=== PATIENT | female | born 1935 | race Caucasian/White ===

== ENCOUNTER 2017-05-28 21:29 | Emergency (ER) | payer MEDICARE ==
[2017-05-28 21:55] VITALS: BP 123/68
--- NOTE | 2017-05-29 00:42 | EDM.PDOC ---
ED HPI GENERAL MEDICAL PROBLEM - General Chief Complaint: Respiratory Problem Stated Complaint: SOB Time Seen by Provider: 05/28/17 22:03 Source of Information: Reports: Patient History Limitations: Reports: No Limitations - History of Present Illness INITIAL COMMENTS - FREE TEXT/NARRATIVE: This lady who has severe COPD comes in complaining of 3 days of shortness of breath cough and sore throat. She has an appointment in a few days with a fine patcher in [place]. Her cough actually seems a little bit better now. She is on home O2 and uses a nebulizer. She has not had a flu shot this year but is certain she's had the Pneumovax. Her her PCP is Rivka horn in [facility]. She lives in an apartment with a friend - Related Data Allergies Allergy/AdvReac Type Severity Reaction Status Date / Time codeine AdvReac Nausea Verified 08/01/15 12:26 Home Meds: Home Meds Lisinopril 5 mg PO DAILY 07/31/15 [History] Omeprazole 20 mg PO DAILY 07/31/15 [History] Past Medical History HEENT History: Reports: Cataract Cardiovascular History: Reports: Arrhythmia, High Cholesterol, Hypertension Respiratory History: Reports: COPD, Pneumonia, Recurrent Gastrointestinal History: Reports: GERD Genitourinary History: Reports: Renal Disease Other Genitourinary History: stage 3 Musculoskeletal History: Reports: Arthritis, Back Pain, Chronic - Infectious Disease History Infectious Disease History: Reports: Measles - Past Surgical History HEENT Surgical History: Reports: Cataract Surgery, Tonsillectomy Social & Family History - Tobacco Use Smoking Status *Q: Never Smoker Years of Tobacco use: 50 - Recreational Drug Use Recreational Drug Use: No ED ROS GENERAL - Review of Systems Review Of Systems: ROS reveals no pertinent complaints other than HPI. ED EXAM, GENERAL - Physical Exam Exam: See Below Exam Limited By: No Limitations General Appearance: Alert, Mild Distress (She has a frequent wet cough and appears to have just mild shortness of breath), Thin Eye Exam: Bilateral Eye: Normal Inspection Nose: Normal Inspection Throat/Mouth: Normal Inspection Head: Atraumatic Respiratory/Chest: Decreased Breath Sounds Cardiovascular: Regular Rate, Rhythm, No Murmur GI/Abdominal: Soft, Non-Tender Extremities: Normal Inspection Neurological: Alert, Oriented Psychiatric: Normal Affect Skin Exam: Warm, Dry Course - Vital Signs Last Recorded V/S: Last Vital Signs Temp 39.5 C H 05/28/17 22:12 Pulse 119 H 05/28/17 22:12 Resp 32 H 05/28/17 22:12 BP 123/68 05/28/17 22:12 Pulse Ox 94 L 05/28/17 22:12 - Orders/Labs/Meds Orders: Active Orders 24 hr Category Date Time Status Chest 2V [CR] Urgent Exams 05/28/17 22:36 Taken CULTURE BLOOD [BC] Urgent Lab 05/28/17 22:50 Received CULTURE BLOOD [BC] Urgent Lab 05/28/17 22:55 Received CULTURE STREP A CONFIRMATION [RM] Stat Lab 05/28/17 23:01 Results STREP SCRN A RAPID W CULT CONF [RM] Stat Lab 05/28/17 23:01 Results Blood Culture x2 Reflex Set [OM.PC] Urgent Oth 05/28/17 22:36 Ordered Labs: Laboratory Tests 05/28/17 05/28/17 05/28/17 Range/Units 22:50 22:50 22:50 WBC 13.4 H (4.5-11.0) K/uL RBC 2.88 L (3.30-5.50) M/uL Hgb 7.5 L D (12.0-15.0) g/dL Hct 25.5 L (36.0-48.0) % MCV 89 (80-98) fL MCH 26 L (27-31) pg MCHC 29 L (32-36) % Plt Count 359 (150-400) K/uL Neut % (Auto) 88 H (36-66) % Lymph % (Auto) 5 L (24-44) % [place] % (Auto) 6 (2-6) % Eos % (Auto) 0 L (2-4) % Baso % (Auto) 0 (0-1) % Sodium 139 L (140-148) mmol/L Potassium 4.2 (3.6-5.2) mmol/L Chloride 105 (100-108) mmol/L Carbon Dioxide 24 (21-32) mmol/L Anion Gap 14.2 H (5.0-14.0) mmol/L BUN 33 H D (7-18) mg/dL Creatinine 1.6 H (0.6-1.0) mg/dL Est Cr Clr Drug Dosing 24.22 mL/min Estimated GFR (MDRD) 31 L (>60) Glucose 114 H (74-106) mg/dL Lactic Acid 1.1 (0.4-2.0) mmol/L Calcium 9.5 (8.5-10.1) mg/dL Total Bilirubin 0.3 (0.2-1.0) mg/dL AST 18 (15-37) U/L ALT 12 (12-78) U/L Alkaline Phosphatase 62 (46-116) U/L Total Protein 7.2 (6.4-8.2) g/dL Albumin 3.1 L (3.4-5.0) g/dL Globulin 4.1 H (2.3-3.5) g/dL Albumin/Globulin Ratio 0.8 L (1.2-2.2) - Radiology Interpretation Free Text/Narrative:: Chest x-ray shows evidence of severe COPD. No definite infiltrates seen - Re-Assessments/Exams Free Text/Narrative Re-Assessment/Exam: 05/29/17 02:40 I suggested that because of her severe lung disease and fever that it would probably be best to put this lady in the hospital and put her on IV antibiotics. She however is certain that she would do well at home so wants to just be put on oral antibiotics. I think that's appropriate. She has promised that she'll return to the ER if she gets worse Departure - Departure Time of Disposition: 00:41 Disposition: Home, Self-Care 01 Condition: Fair Clinical Impression: Pneumonia - Discharge Information Instructions: Community-Acquired Pneumonia, Adult, [id number] Referrals: Rose Marie Gomez PA [Primary Care Provider] - Forms: ED Department Discharge Additional Instructions: Is unclear if you actually have pneumonia or not. Many times he can't see a pneumonia and somebody with really bad COPD. Therefore I'm going to go ahead and treat you with the antibiotic Augmentin and he'll take one tablet twice daily for a week. Continue all of your usual medications. If you feel like you' re getting worse than return to the emergency department or see your doctor. Regardless it would be a good idea to see your doctor within the next 2 or 3 days for a recheck - My Orders Last 24 Hours: My Active Orders 05/28/17 22:36 Chest 2V [CR] Urgent Blood Culture x2 Reflex Set [OM.PC] Urgent 05/28/17 22:50 CULTURE BLOOD [BC] Urgent 05/28/17 22:55 CULTURE BLOOD [BC] Urgent 05/28/17 23:01 CULTURE STREP A CONFIRMATION [RM] Stat STREP SCRN A RAPID W CULT CONF [RM] Stat - Assessment/Plan Last 24 Hours: My Active Orders 05/28/17 22:36 Chest 2V [CR] Urgent Blood Culture x2 Reflex Set [OM.PC] Urgent 05/28/17 22:50 CULTURE BLOOD [BC] Urgent 05/28/17 22:55 CULTURE BLOOD [BC] Urgent 05/28/17 23:01 CULTURE STREP A CONFIRMATION [RM] Stat STREP SCRN A RAPID W CULT CONF [RM] Stat
--- NOTE | 2017-05-29 09:21 | CR ---
Chest 2V HISTORY: pain COMPARISON: 07/31/2015 FINDINGS: No acute infiltrate is identified. Cardiomediastinal silhouette is within normal limits. Atherosclero tic aorta is redemonstrated. Mild apical pleural thickening on the left is stable. Epicardial fat pad is again noted at the right cardiophrenic angle. No vascular redistribution or pleural fluid can be seen. Bony structures and soft tissues are stable. There is mild thoracic scoliosis convex to the rig ht IMPRESSION: Chronic changes as above. No acute chest abnormality is identified. Infiltrates at the left lung base posteriorly have resolved in the interval.
== END 2017-05-29 00:58 | disposition home or self-care (01) ==
LOC: JP.ED 21:29
DX: J18.9 Pneumonia, unspecified organism (principal); Z88.5 Allergy status to narcotic agent; Z79.899 Other long term (current) drug therapy
CPT/HCPCS: 36415; 71020; 71020-26; 80053; 83605; 85025; 87040; 87081; 87430; 87804; 99284; 99285

== ENCOUNTER 2020-02-15 10:09 | Emergency (ER) | payer MEDICARE ==
[2020-02-15 10:35] VITALS: BP 161/62; PULSE 82
--- NOTE | 2020-02-15 10:51 | EDM.PDOC ---
ED HPI GENERAL MEDICAL PROBLEM - General Chief Complaint: Upper Extremity Injury/Pain Stated Complaint: UPPER RIGHT LEG PAIN Time Seen by Provider: 02/15/20 10:40 Source of Information: Reports: Patient History Limitations: Reports: No Limitations - History of Present Illness INITIAL COMMENTS - FREE TEXT/NARRATIVE: 84-year-old female in with right groin pain for the past 48 hours, no known injury. It is especially painful if she is bearing weight or flexes the hip. Pain seems to be localized into the right groin and extends somewhat down into the right medial thigh. She has no swelling or bruising, no rash, no fevers or chills. She is currently on prednisone for a frozen right shoulder. Onset: Sudden (Pain started fairly suddenly 2 days ago) Location: Reports: Lower Extremity, Right Associated Symptoms: Reports: Shortness of Breath (Chronic and stable), Other (Migrating arthritic pains in the shoulder and left hand, being treated for "gout"). Denies: Confusion, Chest Pain, Fever/Chills Right Upper Leg Pain Score (Numeric/FACES): 10 - Related Data Allergies Allergy/AdvReac Type Severity Reaction Status Date / Time codeine AdvReac Nausea Verified 02/15/20 10:31 Home Meds: Home Meds Lisinopril 5 mg PO DAILY 07/31/15 [History] Aspirin [Adult Low Dose Aspirin EC] 81 mg PO DAILY 02/15/20 [History] Telmisartan 40 mg PO DAILY 02/15/20 [History] Tiotropium [Spiriva Handihaler] 18 mcg IH DAILY 02/15/20 [History] predniSONE 40 mg PO DAILY 02/15/20 [History] Past Medical History HEENT History: Reports: Cataract Cardiovascular History: Reports: Arrhythmia, High Cholesterol, Hypertension Respiratory History: Reports: COPD, Pneumonia, Recurrent Gastrointestinal History: Reports: GERD Genitourinary History: Reports: Renal Disease Other Genitourinary History: stage 3 Musculoskeletal History: Reports: Arthritis, Back Pain, Chronic, Gout - Infectious Disease History Infectious Disease History: Reports: Mumps - Past Surgical History HEENT Surgical History: Reports: Cataract Surgery, Tonsillectomy Social & Family History - Tobacco Use Smoking Status *Q: Former Smoker Used Tobacco, but Quit: Yes Month/Year Tobacco Last Used: 15 YEARS - Caffeine Use Caffeine Use: Reports: Soda - Recreational Drug Use Recreational Drug Use: No Review of Systems - Review of Systems Review Of Systems: See Below Constitutional: Denies: Fever Respiratory: Reports: Shortness of Breath (Chronic and stable) Cardiovascular: Denies: Chest Pain GI/Abdominal: Denies: Abdominal Pain, Nausea, Vomiting Genitourinary: Denies: Dysuria, Hematuria Musculoskeletal: Reports: Other (Left index finger is swollen and sore, right shoulder is hurting) Skin: Reports: No Symptoms Neurological: Denies: Headache ED EXAM, GENERAL - Physical Exam Exam: See Below Exam Limited By: No Limitations General Appearance: Alert, No Apparent Distress, Other (Fairly comfortable when lying still) Head: Atraumatic Respiratory/Chest: No Respiratory Distress (Wearing oxygen) GI/Abdominal: Normal Bowel Sounds, Soft, Non-Tender Extremities: Other (Exam is otherwise limited to the lower extremities. She has localized tenderness in the right groin along the inguinal ligament, but no deformity, asymmetry, swelling, bruising, hernia or rash present) Course - Vital Signs Last Recorded V/S: Last Vital Signs Temp 98.3 F 02/15/20 10:31 Pulse 82 02/15/20 10:31 Resp 16 02/15/20 10:31 BP 161/62 H 02/15/20 10:31 Pulse Ox 100 02/15/20 10:31 - Orders/Labs/Meds Meds: Medications Discontinued Medications Generic Name Dose Route Start Last Admin Trade Name Millicent PRN Reason Stop Dose Admin Hydrocodone Bitart/Acetaminophen 1 tab 02/15/20 12:21 02/15/20 12:27 [place] 325-5 Mg PO 02/15/20 12:22 1 tab ONETIME ONE Administration - Re-Assessments/Exams Free Text/Narrative Re-Assessment/Exam: 02/15/20 10:51 A 1 view pelvis x-ray was obtained. 02/15/20 11:08 The 1 view pelvis x-ray showed advanced osteoarthritic changes of the right hip with some erosion of the femoral head. It is difficult to see if there is a compression or pathologic fracture in this area so a CT of the pelvis without contrast was obtained. This will also allow us to look for a hernia in the area. 02/15/20 12:22 Findings: There is no fracture. Degenerative facet arthropathy L5-S1 with grade 1 degenerative spondylolisthesis L5 on S1. Degenerative disc disease L5-S1 with discogenic endplate sclerosis and vacuum disc phenomenon. Vascular calcifications. Incidental Tarlov cysts at the S2 level measuring up to 2.5 centimeters. Sigmoid diverticulosis. Bladder distension. No suspicious soft tissue mass. Ectasia of the distal aorta measuring up to 2.3 centimeters. No sacral fracture. Intact pubic rami. The femoral neck is intact bilaterally. Impression: No fracture. Degenerative changes. Above results were discussed with the patient. She was given 1 5 mg hydrocodone with Tylenol, and an instymed for 10 additional pills. She will recheck next week with her primary provider if not improving satisfactorily. She may need an orthopedic consult as well. Departure - Departure Time of Disposition: 12:28 Disposition: Home, Self-Care 01 Clinical Impression: Right groin pain Osteoarthritis of right hip Qualifiers: Osteoarthritis type: primary Qualified Code(s): M16.11 - Unilateral primary osteoarthritis, right hip - Discharge Information Instructions: Osteoarthritis Referrals: PCP,None [Primary Care Provider] - Forms: ED Department Discharge Care Plan Goals: Take 1 stronger pain pill every 4-6 hours if needed through the weekend, and recheck with your regular doctor next week regarding your progress and improvement. You may need an orthopedic consult regarding your arthritis in your hip. Return to the emergency room at any time if you are worsening despite treatment or develop other concerns. Sepsis Event Note (ED) - Evaluation Sepsis Screening Result: No Definite Risk - Focused Exam Vital Signs: Vital Signs Temp Pulse Resp BP Pulse Ox 02/15/20 10:31 98.3 F 82 16 161/62 H 100
--- NOTE | 2020-02-15 12:16 | CRLCT ---
Indication: RIGHT HIP, GROIN PAIN Technique: Noncontrast CT pelvis, bone algorithm Please note that all CT scans at this facility use dose modulation, iterative reconstruction, and/or weight-based dosing when appropriate to reduce radiation dose to as low as reasonably achievable. Comparison: X-ray February 15, 2020 Findings: There is no fracture. Degenerative facet arthropathy L5-S1 with grade 1 degenerative spondylolisthesis L5 on S1. Degenerative disc disease L5-S1 with discogenic endplate sclerosis and vacuum disc phenomenon. Vascular calcifications. Incidental Tarlov cysts at the S2 level measuring up to 2.5 centimeters. Sigmoid diverticulosis. Bladder distension. No suspicious soft tissue mass. Ectasia of the distal aorta measuring up to 2.3 centimeters. No sacral fracture. Intact pubic rami. The femoral neck is intact bilaterally. Impression: No fracture. Degenerative changes. Please note that all CT scans at this facility use dose modulation, iterative reconstruction, and/or weight-based dosing when appropriate to reduce radiation dose to as low as reasonably achievable. Dictated by Rashawn Whaley MD @ Feb 15 2020 12:09PM Signed by Dr. Rashawn Whaley @ Feb 15 2020 12:15PM
--- NOTE | 2020-02-15 12:19 | CRLCR ---
INDICATION: Right groin pain TECHNIQUE: AP pelvis. COMPARISON: none FINDINGS: No femoral neck fracture. Joint space narrowing and spurring at the right hip. Intact pubic rami. Intact sacrum. Degenerative facet arthropathy L5-S1. No malalignment. IMPRESSION: No fracture. Dictated by Rashawn Whaley MD @ Feb 15 2020 12:16PM Signed by Dr. Rashawn Whaley @ Feb 15 2020 12:16PM
[2020-02-15] MEDS ORDERED: Acetaminophen/HYDROcodone 325-5 MG Tab PO ONE (12:21)
== END 2020-02-15 12:38 | disposition home or self-care (01) ==
LOC: JP.ED 10:09
DX: M16.11 Unilateral primary osteoarthritis, right hip (principal); R10.31 Right lower quadrant pain; E78.00 Pure hypercholesterolemia, unspecified; I10 Essential (primary) hypertension; J44.9 Chronic obstructive pulmonary disease, unspecified; Z87.891 Personal history of nicotine dependence; Z88.5 Allergy status to narcotic agent; Z79.899 Other long term (current) drug therapy; Z79.82 Long term (current) use of aspirin
CPT/HCPCS: 72170; 72192; 99284; A9270; 99283

== ENCOUNTER 2020-06-09 13:17 | Emergency (ER) | payer MEDICARE ==
[2020-06-09 13:52] VITALS: BP 98/64; PULSE 83
--- NOTE | 2020-06-09 15:03 | EDM.PDOC ---
ED HPI GENERAL MEDICAL PROBLEM - General Chief Complaint: Respiratory Problem Stated Complaint: MEDICAL Time Seen by Provider: 06/09/20 14:50 Source of Information: Reports: Patient, RN Notes Reviewed History Limitations: Reports: No Limitations - History of Present Illness INITIAL COMMENTS - FREE TEXT/NARRATIVE: 85-year-old female complains to me that she thinks she has pneumonia. Seen epicortical pneumonia with noted on some got antibiotic. Says it does not help and she not getting better. Denies any fever or chills or diaphoresis. Cough is generally nonproductive. She is cared for at a facility in which she lives. Generally active. Prednisone neuritis. Mainly concerned about pneumonia as she does cough in my presence. [place] is a possibility Onset: Gradual Duration: Day(s): Location: Reports: Chest Severity: Moderate Improves with: Reports: None Worsens with: Reports: None Associated Symptoms: Reports: Cough, Loss of Appetite, Shortness of Breath Left Lower Back Pain Score (Numeric/FACES): 5 - Related Data Allergies Allergy/AdvReac Type Severity Reaction Status Date / Time codeine AdvReac Nausea Verified 02/15/20 10:31 Home Meds: Home Meds Lisinopril 5 mg PO DAILY 07/31/15 [History] Aspirin [Adult Low Dose Aspirin EC] 81 mg PO DAILY 02/15/20 [History] Telmisartan 40 mg PO DAILY 02/15/20 [History] Tiotropium [Spiriva Handihaler] 18 mcg IH DAILY 02/15/20 [History] Past Medical History HEENT History: Reports: Cataract Cardiovascular History: Reports: Arrhythmia, High Cholesterol, Hypertension Respiratory History: Reports: COPD, Pneumonia, Recurrent Gastrointestinal History: Reports: GERD Genitourinary History: Reports: Renal Disease Other Genitourinary History: stage 3 [employer] History: Reports: Musculoskeletal History: Reports: Arthritis, Back Pain, Chronic, Gout - Infectious Disease History Infectious Disease History: Reports: Mumps - Past Surgical History HEENT Surgical History: Reports: Cataract Surgery, Tonsillectomy Social & Family History - Tobacco Use Tobacco Use Status *Q: Former Tobacco User Used Tobacco, but Quit: Yes Month/Year Tobacco Last Used: 14 years - Caffeine Use Caffeine Use: Reports: None - Recreational Drug Use Recreational Drug Use: Yes ED ROS GENERAL - Review of Systems Review Of Systems: See Below Constitutional: Reports: Weakness, Fatigue, Decreased Appetite HEENT: Reports: No Symptoms Respiratory: Reports: Shortness of Breath, Cough Cardiovascular: Reports: No Symptoms, Dyspnea on Exertion Endocrine: Reports: Fatigue GI/Abdominal: Reports: No Symptoms : Reports: No Symptoms Musculoskeletal: Reports: Joint Pain Skin: Reports: No Symptoms Neurological: Reports: No Symptoms Psychiatric: Reports: No Symptoms ED EXAM, GENERAL - Physical Exam Exam: See Below Free Text/Narrative:: Patient is uncooperative elderly appearing thin frail female lying on her side but not greatly distressed. Head exam does show no asymmetry or facial drooping. Neck is supple without JVD Chest is got some altered Jasmin but no retractions Regular rate and rhythm noted without obvious murmur Abdomen soft active bowel sounds nontender Skin extremities appear normal with normal range of motion Exam Limited By: No Limitations General Appearance: Alert, WD/WN, Mild Distress Ears: Normal External Exam Nose: Normal Inspection, Normal Mucosa Throat/Mouth: Normal Inspection Head: Atraumatic, Normocephalic Neck: Normal Inspection, Supple Respiratory/Chest: Crackles, Rhonchi Cardiovascular: Regular Rate, Rhythm, No Murmur GI/Abdominal: Normal Bowel Sounds, Soft, Non-Tender, No Distention Back Exam: Normal Inspection, Full Range of Motion Extremities: Normal Inspection, Normal Range of Motion, No Pedal Edema Neurological: Alert, Oriented, Normal Cognition, No Motor/Sensory Deficits Psychiatric: Normal Affect Skin Exam: Warm, Dry Lymphatic: No Adenopathy Course - Vital Signs Text/Narrative:: 85-year-old female presents because she think she has pneumonia and generalized weakness. She has some shortness of breath. She was started on antibiotics apparently but is not any better. She denies any history of blood loss anywhere that she knows of or black stools. Denies chest pain at the moment. Hemoglobin is 6.9. BUN is 99. Potassium 5.8 White count is 1500 Chest x-ray suggest some bilateral infiltrates possible pneumonia I discussed her care with her daughter Karen who urges that her mother accept treatment and stay in the hospital. I have discussed with the patient who seems to understand the gravity of the situation. I have advised her that she needs blood which she is willing to take but she will not stay in the hospital to receive it. I advised her also that she is probably dehydrated and that she has a very low w bob count. She also understands that she may be Covid positive which taken together with her general debilitated situation does not have a good forecast. She refuses any Covid testing She does not want any interventions if her heart stops she indicates. She absolutely wants to go home and her neighbor is willing to take her if that is what the patient insists that she wants to do. She appears to have the capacity to make that decision on her own and is not gravely disabled enough to preclude her from that decision She wants to know she can come back at a later time if she does not feel well and I assured her that she is welcome to come back at any time Last Recorded V/S: Last Vital Signs Temp 35.6 C L 06/09/20 13:51 Pulse 83 06/09/20 13:51 Resp 16 06/09/20 13:51 BP 98/64 06/09/20 13:51 Pulse Ox 98 06/09/20 13:51 - Orders/Labs/Meds Orders: Active Orders 24 hr Category Date Time Status EKG Documentation Completion [RC] ASDIRECTED Care 06/09/20 15:07 Active CORONAVIRUS COVID-19, YAIR Stat Lab 06/09/20 15:06 Ordered IRON/TIBC [CHEM] Stat Lab 06/09/20 15:57 Ordered TYPE AND SCREEN [BBK] Stat Lab 06/09/20 15:57 Ordered UA W/MICROSCOPIC [URIN] Stat Lab 06/09/20 15:06 Ordered EKG 12 Lead [EK] Stat Ther 06/09/20 15:06 Ordered Labs: Laboratory Tests 06/09/20 06/09/20 06/09/20 Range/Units 15:06 15:37 15:37 WBC 1.5 L (4.5-11.0) K/uL RBC 2.90 L (3.30-5.50) M/uL Hgb 6.9 L* (12.0-15.0) g/dL Hct 25.8 L (36.0-48.0) % MCV 89 (80-98) fL MCH 24 L (27-31) pg MCHC 27 L (32-36) % Plt Count 69 L (150-400) K/uL D-Dimer, Quantitative 6652.90 H (0.0-500.0) ng/mL ABG Hemoglobin 7.2 L (12.0-16.0) g/dL ABG Oxyhemoglobin 27.8 % ABG Carboxyhemoglobin 3.1 H (0.0-1.6) % ABG Methemoglobin 1.1 % VBG pH 7.332 L (7.350-7.450) VBG pCO2 43.8 mm/Hg VBG pO2 23.8 mm/Hg VBG HCO3 22.6 mmol/L VBG Total CO2 22.3 mmol/L VBG O2 Saturation 29.0 VBG O2 Content 2.8 %vol VBG Base Excess -2.5 mm/L O2 Delivery Device Room air Sodium (140-148) mmol/L Potassium (3.6-5.2) mmol/L Chloride (100-108) mmol/L Carbon Dioxide (21-32) mmol/L Anion Gap (5.0-14.0) mmol/L BUN (7-18) mg/dL Creatinine (0.6-1.0) mg/dL Est Cr Clr Drug Dosing mL/min Estimated GFR (MDRD) (>60) Glucose (74-106) mg/dL Calcium (8.5-10.1) mg/dL Total Bilirubin (0.2-1.0) mg/dL AST (15-37) U/L ALT (12-78) U/L Alkaline Phosphatase (46-116) U/L Troponin I (0.000-0.056) ng/mL C-Reactive Protein (0.0-0.3) mg/dL Total Protein (6.4-8.2) g/dL Albumin (3.4-5.0) g/dL Globulin (2.3-3.5) g/dL Albumin/Globulin Ratio (1.2-2.2) 06/09/20 Range/Units 15:37 WBC (4.5-11.0) K/uL RBC (3.30-5.50) M/uL Hgb (12.0-15.0) g/dL Hct (36.0-48.0) % MCV (80-98) fL MCH (27-31) pg MCHC (32-36) % Plt Count (150-400) K/uL D-Dimer, Quantitative (0.0-500.0) ng/mL ABG Hemoglobin (12.0-16.0) g/dL ABG Oxyhemoglobin % ABG Carboxyhemoglobin (0.0-1.6) % ABG Methemoglobin % VBG pH (7.350-7.450) VBG pCO2 mm/Hg VBG pO2 mm/Hg VBG HCO3 mmol/L VBG Total CO2 mmol/L VBG O2 Saturation VBG O2 Content %vol VBG Base Excess mm/L O2 Delivery Device Sodium 146 (140-148) mmol/L Potassium 5.8 H (3.6-5.2) mmol/L Chloride 111 H (100-108) mmol/L Carbon Dioxide 24 (21-32) mmol/L Anion Gap 16.8 H (5.0-14.0) mmol/L BUN 99 H* D (7-18) mg/dL Creatinine 2.2 H (0.6-1.0) mg/dL Est Cr Clr Drug Dosing 14.15 mL/min Estimated GFR (MDRD) 21 L (>60) Glucose 83 (74-106) mg/dL Calcium 9.8 (8.5-10.1) mg/dL Total Bilirubin 0.3 (0.2-1.0) mg/dL AST 16 (15-37) U/L ALT 12 (12-78) U/L Alkaline Phosphatase 45 L (46-116) U/L Troponin I < 0.017 (0.000-0.056) ng/mL C-Reactive Protein 11.21 H (0.0-0.3) mg/dL Total Protein 6.8 (6.4-8.2) g/dL Albumin 2.6 L (3.4-5.0) g/dL Globulin 4.2 H (2.3-3.5) g/dL Albumin/Globulin Ratio 0.6 L (1.2-2.2) Departure - Departure Time of Disposition: 16:22 Disposition: Home, Self-Care 01 Condition: Poor, Serious Clinical Impression: Pneumonia, Leukopenia - Discharge Information Referrals: PCP,None [Primary Care Provider] - Forms: ED Department Discharge Additional Instructions: Return to the emergency department anytime when you feel it is appropriate I suggest that you call your daughter and discuss with her Sepsis Event Note (ED) - Evaluation Sepsis Screening Result: No Definite Risk - Focused Exam Vital Signs: Vital Signs Temp Pulse Resp BP Pulse Ox 06/09/20 13:51 35.6 C L 83 16 98/64 98 - My Orders Last 24 Hours: My Active Orders 06/09/20 15:06 CORONAVIRUS COVID-19, YARI Stat UA W/MICROSCOPIC [URIN] Stat EKG 12 Lead [EK] Stat 06/09/20 15:07 EKG Documentation Completion [RC] ASDIRECTED 06/09/20 15:57 IRON/TIBC [CHEM] Stat TYPE AND SCREEN [BBK] Stat - Assessment/Plan Last 24 Hours: My Active Orders 06/09/20 15:06 CORONAVIRUS COVID-19, YAIR Stat UA W/MICROSCOPIC [URIN] Stat EKG 12 Lead [EK] Stat 06/09/20 15:07 EKG Documentation Completion [RC] ASDIRECTED 06/09/20 15:57 IRON/TIBC [CHEM] Stat TYPE AND SCREEN [BBK] Stat
--- NOTE | 2020-06-09 16:17 | CR ---
CHEST: Portable 06/09/2020 3:56 PM CLINICAL HISTORY:Pain COMPARISON:None FINDINGS: Lungs are moderately emphysematous. Heart size and pulmonary vascularity are normal. There are some scattered vague nodularity. This may be pleural parenchymal scarring but short-term follow-up is recommended. Impression: Advanced changes of COPD There are some vague nodular foci bilaterally. Noncontrast CT chest should BE considered when patient's condition allows to exclude metastatic disease.
== END 2020-06-09 16:33 | disposition left against medical advice (07) ==
LOC: JP.ED 13:17
DX: J18.9 Pneumonia, unspecified organism (principal); D72.819 Decreased white blood cell count, unspecified; I10 Essential (primary) hypertension; M19.90 Unspecified osteoarthritis, unspecified site; Z87.891 Personal history of nicotine dependence; Z88.5 Allergy status to narcotic agent; Z79.82 Long term (current) use of aspirin; J44.9 Chronic obstructive pulmonary disease, unspecified
CPT/HCPCS: 36415; 71045; 71045-26; 80053; 82803; 83550; 84484; 85027; 85379; 86140; 86850; 86900; 86901; 93005; 93010; 99283; 99285-25

== ENCOUNTER 2020-07-04 19:02 | Inpatient (IN) | payer MEDICARE ==
[2020-07-04] MEDS ORDERED: Adenosine 6 MG/2 ML SDV IVPUSH ONE ×2 (19:06)
[2020-07-04] MEDS ORDERED: Sodium Chloride 0.9% 10 ML Syringe FLUSH PRN (19:25)
[2020-07-04] MEDS ORDERED: Metoprolol Tartrate 5 MG/5 ML SDV IVPUSH ONE (19:25)
--- NOTE | 2020-07-04 19:29 | EDM.PDOC ---
ED HPI GENERAL MEDICAL PROBLEM - General Chief Complaint: Chest Pain Stated Complaint: CHEST PAINS Time Seen by Provider: 07/04/20 20:58 Source of Information: Reports: Patient, RN Notes Reviewed History Limitations: Reports: No Limitations - History of Present Illness INITIAL COMMENTS - FREE TEXT/NARRATIVE: 85-year-old female presents emergency department with a complaint of chest pressure, and palpitations, she states she had an event earlier today friends brought her into the ED for evaluation and while she is in the ED she become tachycardic with a heart rate in the 190s, was able to communicate this whole time did not feel lightheaded states she could feel the palpitations did have some chest discomfort and right arm pain with this no nausea vomiting - Related Data Allergies Allergy/AdvReac Type Severity Reaction Status Date / Time codeine AdvReac Nausea Verified 07/04/20 19:25 Home Meds: Home Meds Lisinopril 5 mg PO DAILY 07/31/15 [History] Aspirin [Adult Low Dose Aspirin EC] 81 mg PO DAILY 02/15/20 [History] Telmisartan 40 mg PO DAILY 02/15/20 [History] Tiotropium [Spiriva Handihaler] 18 mcg IH DAILY 02/15/20 [History] Albuterol Sulfate 1 dose INH ASDIRECTED 07/04/20 [History] Past Medical History HEENT History: Reports: Cataract Cardiovascular History: Reports: Arrhythmia (SVT), High Cholesterol, Hypertension Respiratory History: Reports: COPD, Pneumonia, Recurrent Gastrointestinal History: Reports: GERD Genitourinary History: Reports: Renal Disease Other Genitourinary History: stage 3 [employer] History: Reports: Musculoskeletal History: Reports: Arthritis, Back Pain, Chronic, Gout - Infectious Disease History Infectious Disease History: Reports: Mumps - Past Surgical History HEENT Surgical History: Reports: Cataract Surgery, Tonsillectomy Social & Family History - Caffeine Use Caffeine Use: Reports: None ED ROS GENERAL - Review of Systems Review Of Systems: See Below Constitutional: Reports: No Symptoms HEENT: Reports: No Symptoms Respiratory: Reports: No Symptoms Cardiovascular: Reports: Chest Pain, Palpitations GI/Abdominal: Reports: No Symptoms ED EXAM, GENERAL - Physical Exam Exam: See Below Exam Limited By: No Limitations General Appearance: Alert, Mild Distress Respiratory/Chest: No Respiratory Distress, Lungs Clear, Normal Breath Sounds, No Accessory Muscle Use, Chest Non-Tender Cardiovascular: Tachycardia ED CARDIOLOGY PROCEDURES - Cardioversion Time of Cardioversion: 19:28 Indication: SVT Patient Counseled: Yes Informed Consent Obtained: No Preparation: IV Access, Airway Management Equipment, Supplemental Oxygen Patient Condition Post Cardioversion: Improved Post Cardioversion EKG Reviewed: Yes (Chemical cardioversion with adenosine) Course - Vital Signs Last Recorded V/S: Last Vital Signs Temp 95.5 F L 07/04/20 19:05 Pulse 92 07/04/20 20:30 Resp 18 07/04/20 20:30 BP 98/60 07/04/20 20:30 Pulse Ox 99 07/04/20 20:30 - Orders/Labs/Meds Orders: Active Orders 24 hr Category Date Time Status Cardiac Monitoring [RC] .As Directed Care 07/04/20 19:26 Active EKG Documentation Completion [RC] ASDIRECTED Care 07/04/20 19:26 Active Peripheral IV Care [RC] . DIRECTED Care 07/04/20 19:26 Active Chest 1V Frontal [CR] Urgent Exams 07/04/20 20:42 Ordered Chest Abdomen Pelvis wo Cont [CT] Stat Exams 07/04/20 20:50 Ordered FERRITIN [CHEM] Stat Lab 07/04/20 20:51 Ordered IRON/TIBC [CHEM] Stat Lab 07/04/20 20:51 Ordered RED BLOOD CELLS LP [BBK] Stat Lab 07/04/20 20:51 Ordered TYPE AND SCREEN [BBK] Stat Lab 07/04/20 20:51 Ordered UA W/MICROSCOPIC [URIN] Urgent Lab 07/04/20 20:42 Ordered Sodium Chloride 0.9% [Normal Saline] 1,000 ml Med 07/04/20 19:30 Active IV ASDIRECTED Sodium Chloride 0.9% [Saline Flush] Med 07/04/20 19:25 Active 10 ml FLUSH ASDIRECTED PRN Peripheral IV Insertion Adult [OM.PC] Stat Oth 07/04/20 19:25 Ordered Transfuse Red Blood Cells [COMM] Stat Oth 07/04/20 20:51 Ordered EKG 12 Lead [EK] Stat Ther 07/04/20 19:26 Ordered Medication Orders Sodium Chloride (Normal Saline) 1,000 mls @ 125 mls/hr IV ASDIRECTED YEN Last Admin: 07/04/20 20:15 Dose: 125 mls/hr Documented by: [email or web address] Sodium Chloride (Saline Flush) 10 ml FLUSH ASDIRECTED PRN PRN Reason: Keep Vein Open Labs: Laboratory Tests 07/04/20 07/04/20 07/04/20 Range/Units 19:15 19:15 19:15 WBC 18.2 H (4.5-11.0) K/uL RBC 2.67 L (3.30-5.50) M/uL Hgb 6.8 L* (12.0-15.0) g/dL Hct 25.3 L (36.0-48.0) % MCV 95 (80-98) fL MCH 26 L (27-31) pg MCHC 27 L (32-36) % Plt Count 684 H (150-400) K/uL Neut % (Auto) 80 H (36-66) % Lymph % (Auto) 11 L (24-44) % [place] % (Auto) 7 H (2-6) % Eos % (Auto) 1 L (2-4) % Baso % (Auto) 1 (0-1) % Sodium 137 L (140-148) mmol/L Potassium 4.6 (3.6-5.2) mmol/L Chloride 101 (100-108) mmol/L Carbon Dioxide 23 (21-32) mmol/L Anion Gap 17.6 H (5.0-14.0) mmol/L BUN 47 H D (7-18) mg/dL Creatinine 2.3 H (0.6-1.0) mg/dL Est Cr Clr Drug Dosing 14.07 mL/min Estimated GFR (MDRD) 20 L (>60) Glucose 114 H (74-106) mg/dL Lactic Acid 2.6 H (0.4-2.0) mmol/L Calcium 10.2 H (8.5-10.1) mg/dL Total Bilirubin 0.2 (0.2-1.0) mg/dL AST 14 L (15-37) U/L ALT 13 (12-78) U/L Alkaline Phosphatase 59 (46-116) U/L Troponin I < 0.017 (0.000-0.056) ng/mL Total Protein 7.2 (6.4-8.2) g/dL Albumin 2.3 L (3.4-5.0) g/dL Globulin 4.9 H (2.3-3.5) g/dL Albumin/Globulin Ratio 0.5 L (1.2-2.2) Meds: Medications Generic Name Dose Route Start Last Admin Trade Name Freq PRN Reason Stop Dose Admin Sodium Chloride 1,000 mls @ 125 mls/hr 07/04/20 19:30 07/04/20 20:15 Normal Saline IV 125 mls/hr ASDIRECTED YEN Administration Sodium Chloride 10 ml 07/04/20 19:25 Saline Flush FLUSH ASDIRECTED PRN Keep Vein Open Discontinued Medications Generic Name Dose Route Start Last Admin Trade Name Freq PRN Reason Stop Dose Admin Adenosine 6 mg 07/04/20 19:06 07/04/20 19:18 Adenocard IVPUSH 07/04/20 19:07 6 mg NOW ONE Administration Adenosine 12 mg 07/04/20 19:06 07/04/20 20:03 Adenocard IVPUSH 07/04/20 19:07 Not Given NOW ONE Metoprolol Tartrate 2.5 mg 07/04/20 19:25 07/04/20 20:01 Lopressor IVPUSH 07/04/20 19:26 2.5 mg ONETIME ONE Administration Departure - Departure Time of Disposition: 20:58 Disposition: Admitted As Inpatient 68 Condition: Poor Clinical Impression: Paroxysmal supraventricular tachycardia Anemia Qualifiers: Anemia type: unspecified type Qualified Code(s): D64.9 - Anemia, unspecified Referrals: PCP,None [Primary Care Provider] - Forms: ED Department Discharge Sepsis Event Note (ED) - Focused Exam Vital Signs: Vital Signs Temp Pulse Pulse Resp BP BP Pulse Ox 07/04/20 20:30 92 18 98/60 99 07/04/20 20:20 91 97/53 L 07/04/20 20:01 91 113/58 L 07/04/20 19:50 89 20 110/60 100 07/04/20 19:40 86 106/62 07/04/20 19:30 90 102/61 07/04/20 19:05 95.5 F L 121 H 18 100/66 98 - My Orders Last 24 Hours: My Active Orders 07/04/20 19:25 Sodium Chloride 0.9% [Saline Flush] 10 ml FLUSH ASDIRECTED PRN Peripheral IV Insertion Adult [OM.PC] Stat 07/04/20 19:26 Cardiac Monitoring [RC] .As Directed EKG Documentation Completion [RC] ASDIRECTED Peripheral IV Care [RC] . DIRECTED EKG 12 Lead [EK] Stat 07/04/20 19:30 Sodium Chloride 0.9% [Normal Saline] 1,000 ml IV ASDIRECTED 07/04/20 20:42 Chest 1V Frontal [CR] Urgent UA W/MICROSCOPIC [URIN] Urgent 07/04/20 20:50 Chest Abdomen Pelvis wo Cont [CT] Stat 07/04/20 20:51 FERRITIN [CHEM] Stat IRON/TIBC [CHEM] Stat RED BLOOD CELLS LP [BBK] Stat TYPE AND SCREEN [BBK] Stat Transfuse Red Blood Cells [COMM] Stat - Assessment/Plan Last 24 Hours: My Active Orders 07/04/20 19:25 Sodium Chloride 0.9% [Saline Flush] 10 ml FLUSH ASDIRECTED PRN Peripheral IV Insertion Adult [OM.PC] Stat 07/04/20 19:26 Cardiac Monitoring [RC] .As Directed EKG Documentation Completion [RC] ASDIRECTED Peripheral IV Care [RC] . DIRECTED EKG 12 Lead [EK] Stat 07/04/20 19:30 Sodium Chloride 0.9% [Normal Saline] 1,000 ml IV ASDIRECTED 07/04/20 20:42 Chest 1V Frontal [CR] Urgent UA W/MICROSCOPIC [URIN] Urgent 07/04/20 20:50 Chest Abdomen Pelvis wo Cont [CT] Stat 07/04/20 20:51 FERRITIN [CHEM] Stat IRON/TIBC [CHEM] Stat RED BLOOD CELLS LP [BBK] Stat TYPE AND SCREEN [BBK] Stat Transfuse Red Blood Cells [COMM] Stat Plan: Assessment Acuity = acute Site and laterality = SVT complicated the patient with known history of severe end-stage COPD, hypertension and dyslipidemia Etiology = unknown Manifestations = none Location of injury = Home Lab values = WBC elevated 18.2 consistent leukocytosis hemoglobin low at 6.8 consistent with normochromic anemia platelets elevated 684 consistent with thrombocytosis creatinine elevated 2.3 consistent with chronic renal failure stage G4 lactic acid elevated 2.6 consistent lactic acidosis troponin is negative albumin low at 2.3 consistent with hypoalbuminemia, chest x-ray CT scan abdomen pelvis without contrast pending Plan Call discussed case hospitalist on-call at [phone] currently agreed to come and evaluate patient emergency department for admission This note was dictated using [employer] voice recognition software please call with any questions on syntax or grammar.
[2020-07-04] MEDS ORDERED: Sodium Chloride 0.9% 1,000 ML IV SCH (19:30)
--- NOTE | 2020-07-04 22:20 | CRLCT ---
INDICATION: Lung nodules COMPARISON: None available TECHNIQUE: CT examination of the chest, abdomen, and pelvis was performed without contrast enhancement using 3 mm thick axial sections from above the apices of the lungs through the symphysis pubis. Oral contrast was not administered. Please note that all CT scans at this facility use dose modulation, iterative reconstruction, and/or weight-based dosing when appropriate to reduce radiation dose to as low as reasonably achievable. FINDINGS: : There is a rounded, spiculated mass in the posterior right apex measuring 2.3 x 3.8 x 1.4 centimeters. It contains central calcifications. There is a rounded, spiculated mass in the posterior left apex measuring 3.8 x 2.5 x 0.8 centimeters. This does not have any calcifications. Both of these masses are in continuity with the apical pleura and could be areas of nodular pleural scarring. Malignancy cannot be excluded. Recommend correlation with PET/CT scanning if no previous CTs of the chest are available. There is moderate left and mild right apical pleural scarring adjacent to these nodular densities, along with mild centrilobular bullous emphysema, slightly more prominent on the left than the right. There is mild bronchiectasis throughout both lungs with mild thickening of the bronchial mon[place] in both lower lobes consistent with bronchitis. This is associated with mild tree-in-bud inflammatory changes in the lower lobes at the lung bases bilaterally, consistent with inflammatory disease. Nodular scarring is seen in the pleural and subpleural regions of both anterior right middle and inferior lingular regions consistent with scarring from previous inflammatory disease. There is a moderate-sized hiatal hernia. There is no sign of mediastinal or hilar mass or adenopathy. Sensitivity is limited by the absence of contrast enhancement. There is mild left main LAD, LCX, and RCA coronary calcification. The heart is otherwise normal in appearance for the patient`s age, as are the aorta and other ascending great vessels. There is no sign of supraclavicular or axillary mass or adenopathy. In the abdomen, the liver has a 6 millimeter low-density region in the anterior dome of the anterior segment of the right lobe, segment 8. This is most likely a small cyst. The rest of the liver is normal in appearance. The spleen, pancreas, and adrenals are normal in appearance. Multiple cysts are seen arising from both kidneys. The largest cyst arises from the lower pole of the right kidney, measuring 4.1 centimeters in diameter. The gallbladder is normal in appearance. The abdominal aorta has mild dilatation of the infrarenal region with tortuosity, measuring up to 2.7 centimeters in transverse diameter, not reaching the 3.0 centimeter threshold to require annual follow-up. There is no sign of retroperitoneal mass or adenopathy. The intrathoracic stomach and loops of small bowel in the abdomen are normal in appearance. There is moderate diverticulosis of the colon of the splenic flexure and prominent diverticulosis of the descending colon. The right colon is unremarkable. In the pelvis, the appendix is normal in appearance with no sign of inflammatory process. There is prominent sigmoid diverticulosis without evidence of diverticulitis. The loops of small bowel and colon in the pelvis are otherwise normal in appearance. The uterus and adnexal regions are normal in appearance. The urinary bladder is mildly distended and is otherwise normal in appearance. There is no sign of pelvic or inguinal mass or adenopathy. There is no sign of free air or free fluid in the abdomen or pelvis. There is moderate scoliosis of the upper lumbar spine convex towards the left with prominent T12-L1 disc degenerative disease and mild rotatory scoliosis of the T12 vertebral body towards the right. There is prominent disc degenerative disease throughout the upper lumbar spine related to the scoliosis. 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 The right pars is intact. 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 There is mild primary osteoarthritis of the left hip with mild left hip primary osteoarthritis. There is no sign of any lytic or blastic lesions in the bone, with no evidence of metastatic disease. IMPRESSION: CT of the chest shows right greater than left apical pleural masses, malignancy versus scarring. Recommend correlation with PET/CT scanning no previous CTs of the chest are available. Bronchiectasis throughout both lungs. Bronchial wall thickening in the lower lobes along with mild peripheral tree-in-bud infiltrates, consistent with bronchitis. Slightly more prominent areas of scarring in the anterior subpleural right middle lobe and lingula. Moderate hiatal hernia. CT of the abdomen shows multiple renal cysts. Mild focal dilatation of the infrarenal abdominal aorta measuring up to a centimeters in diameter, not reaching the 3.0 centimeter threshold to suggest routine annual screening. Diverticulosis of the left colon. CT of the pelvis shows prominent diverticulosis of the sigmoid colon with no sign of diverticulitis. Mild distention of the otherwise normal appearing urinary bladder. No evidence of metastatic disease to the chest, abdomen, or pelvis. Please note that all CT scans at this facility use dose modulation, iterative reconstruction, and/or weight-based dosing when appropriate to reduce radiation dose to as low as reasonably achievable. Dictated by Harris Mckeon MD @ Jul 04 2020 10:01PM Signed by Dr. Harris Mckeon @ Jul 04 2020 10:19PM
--- NOTE | 2020-07-04 22:52 | PCM.HP.2 ---
H&P History of Present Illness - General Date of Service: 07/04/20 Admit Problem/Dx: Admission Diagnosis/Problem Admission Diagnosis/Problem Anemia due to blood loss Source of Information: Patient, Provider History Limitations: Reports: No Limitations - History of Present Illness Initial Comments - Free Text/Narative: CC: there's something running across my chest HPI: Gisselle presents to the emergency room today with the sensation that something is running across to her chest. She describes what sound like palpitations followed by a warmth that spreads from her chest up into her neck and then her head. She becomes dizzy and lightheaded but has not passed out. She had a couple of these episodes today and has had several of them over the last 2 to 3 months and she thinks maybe she has been having them even for 2 or 3 years. They seem to be more intense in recent days. She does not describe any chest pain or pressure but does feel short of breath with the episodes. They last for just a short while before resolving on their own. She had an episode while she was in the emergency room and her heart rate was 190 with a rhythm that appeared to be SVT. She reports significant fatigue over the last month or so but has not really felt well for the last 6 months. She has not noticed any black or tarry stools and has not had any blood in her stool. No hematemesis. Appetite is good with the exception of about 3 weeks ago when she was sick with what sounds like a Covid infection though she was never tested. She has not had recent fevers. No significant cough. Oxygenation is stable on her usual 2 L. She has noticed lower extremity swelling over the last couple of weeks and this is limited to her ankles. Work-up in the emergency room revealed significant tachycardia with SVT. This slowed to a sinus tachycardia after adenosine and then has slowed further to a normal sinus rhythm. Laboratory work-up revealed leukocytosis and thrombocytosis as well as anemia with hemoglobin of less than 7. Her creatinine is 2.3 which is where it has been the last couple times it has been checked here at the hospital. She had a CT scan of the chest, abdomen and pelvis which showed some cystic kidney disease and some bronchiectasis but no impressive acute findings. She is going to be admitted for management of the anemia which is suspected to be due to acute but occult blood loss as well as the SVT and work-up of her kidney disease which is worsening with review of her [facility] records. - Related Data Allergies/Adverse Reactions: Allergies Allergy/AdvReac Type Severity Reaction Status Date / Time codeine AdvReac Nausea Verified 07/04/20 19:25 Home Medications: Home Meds Aspirin [Adult Low Dose Aspirin EC] 81 mg PO DAILY 02/15/20 [History] Telmisartan 40 mg PO DAILY 02/15/20 [History] Tiotropium [Spiriva Handihaler] 18 mcg IH DAILY 02/15/20 [History] Albuterol Sulfate 1 dose INH ASDIRECTED 07/04/20 [History] Albuterol [Proventil Neb Soln] 2.5 mg NEB QID 07/04/20 [History] Past Medical History HEENT History: Reports: Cataract Cardiovascular History: Reports: Arrhythmia, High Cholesterol, Hypertension Respiratory History: Reports: COPD, Pneumonia, Recurrent Gastrointestinal History: Reports: GERD Genitourinary History: Reports: Renal Disease Other Genitourinary History: stage 3 ONCOLOGY ADMIN History: Reports: Musculoskeletal History: Reports: Arthritis, Back Pain, Chronic, Gout - Infectious Disease History Infectious Disease History: Reports: Mumps - Past Surgical History HEENT Surgical History: Reports: Cataract Surgery, Tonsillectomy Social & Family History - Family History Cardiac: Reports: CAD - Tobacco Use Tobacco Use Status *Q: Never Tobacco User - Caffeine Use Caffeine Use: Reports: None H&P Review of Systems - Review of Systems: Review Of Systems: See Below Free Text/Narrative: A complete 12 point review of systems was obtained. Pertinent positives and negatives are noted in the history of present illness. All other systems were reviewed and were negative except as noted. Exam - Exam Exam: See Below - Vital Signs Vital Signs: Last Vital Signs Temp 35.3 C L 07/04/20 19:05 Pulse 85 07/04/20 22:35 Resp 20 07/04/20 22:35 BP 105/60 07/04/20 22:35 Pulse Ox 100 07/04/20 22:35 Weight: 48.081 kg - Exam Quality Assessment: Supplemental Oxygen General: Alert, Oriented, Cooperative. No: Mild Distress HEENT: Conjunctiva Clear, Mucosa Moist & [place]. No: Scleral Icterus Neck: Supple, Trachea Midline. No: JVD Lungs: Clear to Auscultation, Normal Respiratory Effort Cardiovascular: Regular Rate, Regular Rhythm GI/Abdominal Exam: Soft, No Distention Extremities: Pedal Edema (pitting edema both ankles ). No: Increased Warmth Peripheral Pulses: 0: Dorsalis Pedis (L), Dorsalis Pedis (R) Skin: Warm, Dry Neuro Extensive - Mental Status: Alert, Oriented x3, Nl Response to Commands Neuro Extensive - Motor, Sensory, Reflexes: No: Dysarthria, Abnormal Motor, Tremor Psychiatric: Alert, Normal Affect - Patient Data Lab Results Last 24 hrs: Laboratory Results - last 24 hr 07/04/20 07/04/20 07/04/20 Range/Units 19:15 19:15 19:15 WBC 18.2 H (4.5-11.0) K/uL RBC 2.67 L (3.30-5.50) M/uL Hgb 6.8 L* (12.0-15.0) g/dL Hct 25.3 L (36.0-48.0) % MCV 95 (80-98) fL MCH 26 L (27-31) pg MCHC 27 L (32-36) % Plt Count 684 H (150-400) K/uL Neut % (Auto) 80 H (36-66) % Lymph % (Auto) 11 L (24-44) % [place] % (Auto) 7 H (2-6) % Eos % (Auto) 1 L (2-4) % Baso % (Auto) 1 (0-1) % Sodium 137 L (140-148) mmol/L Potassium 4.6 (3.6-5.2) mmol/L Chloride 101 (100-108) mmol/L Carbon Dioxide 23 (21-32) mmol/L Anion Gap 17.6 H (5.0-14.0) mmol/L BUN 47 H D (7-18) mg/dL Creatinine 2.3 H (0.6-1.0) mg/dL Est Cr Clr Drug Dosing 14.07 mL/min Estimated GFR (MDRD) 20 L (>60) Glucose 114 H (74-106) mg/dL Lactic Acid 2.6 H (0.4-2.0) mmol/L Calcium 10.2 H (8.5-10.1) mg/dL Iron (50-170) ug/dL TIBC (250-450) ug/dl % Saturation (20-55) % Ferritin (8-388) ng/ml Total Bilirubin 0.2 (0.2-1.0) mg/dL AST 14 L (15-37) U/L ALT 13 (12-78) U/L Alkaline Phosphatase 59 (46-116) U/L Troponin I < 0.017 (0.000-0.056) ng/mL Total Protein 7.2 (6.4-8.2) g/dL Albumin 2.3 L (3.4-5.0) g/dL Globulin 4.9 H (2.3-3.5) g/dL Albumin/Globulin Ratio 0.5 L (1.2-2.2) Urine Color (YELLOW) Urine Appearance (CLEAR) Urine pH (5.0-8.0) Ur Specific [place] (1.008-1.030) Urine Protein (NEGATIVE) mg/dL Urine Glucose (UA) (NEGATIVE) mg/dL Urine Ketones (NEGATIVE) mg/dL Urine Occult Blood (NEGATIVE) Urine Nitrite (NEGATIVE) Urine Bilirubin (NEGATIVE) Urine Urobilinogen (0.2-1.0) EU/dL Ur Leukocyte Esterase (NEGATIVE) Urine RBC (0-5) Urine WBC (0-5) Ur Epithelial Cells Urine Bacteria Blood Type Gel Antibody Screen Crossmatch 07/04/20 07/04/20 07/04/20 Range/Units 19:15 19:15 19:15 WBC (4.5-11.0) K/uL RBC (3.30-5.50) M/uL Hgb (12.0-15.0) g/dL Hct (36.0-48.0) % MCV (80-98) fL MCH (27-31) pg MCHC (32-36) % Plt Count (150-400) K/uL Neut % (Auto) (36-66) % Lymph % (Auto) (24-44) % [place] % (Auto) (2-6) % Eos % (Auto) (2-4) % Baso % (Auto) (0-1) % Sodium (140-148) mmol/L Potassium (3.6-5.2) mmol/L Chloride (100-108) mmol/L Carbon Dioxide (21-32) mmol/L Anion Gap (5.0-14.0) mmol/L BUN (7-18) mg/dL Creatinine (0.6-1.0) mg/dL Est Cr Clr Drug Dosing mL/min Estimated GFR (MDRD) (>60) Glucose (74-106) mg/dL Lactic Acid (0.4-2.0) mmol/L Calcium (8.5-10.1) mg/dL Iron 15 L (50-170) ug/dL TIBC 267 (250-450) ug/dl % Saturation 6 L (20-55) % Ferritin 49 (8-388) ng/ml Total Bilirubin (0.2-1.0) mg/dL AST (15-37) U/L ALT (12-78) U/L Alkaline Phosphatase (46-116) U/L Troponin I (0.000-0.056) ng/mL Total Protein (6.4-8.2) g/dL Albumin (3.4-5.0) g/dL Globulin (2.3-3.5) g/dL Albumin/Globulin Ratio (1.2-2.2) Urine Color (YELLOW) Urine Appearance (CLEAR) Urine pH (5.0-8.0) Ur Specific [place] (1.008-1.030) Urine Protein (NEGATIVE) mg/dL Urine Glucose (UA) (NEGATIVE) mg/dL Urine Ketones (NEGATIVE) mg/dL Urine Occult Blood (NEGATIVE) Urine Nitrite (NEGATIVE) Urine Bilirubin (NEGATIVE) Urine Urobilinogen (0.2-1.0) EU/dL Ur Leukocyte Esterase (NEGATIVE) Urine RBC (0-5) Urine WBC (0-5) Ur Epithelial Cells Urine Bacteria Blood Type A POSITIVE Gel Antibody Screen Negative Crossmatch See Detail 07/04/20 Range/Units 21:50 WBC (4.5-11.0) K/uL RBC (3.30-5.50) M/uL Hgb (12.0-15.0) g/dL Hct (36.0-48.0) % MCV (80-98) fL MCH (27-31) pg MCHC (32-36) % Plt Count (150-400) K/uL Neut % (Auto) (36-66) % Lymph % (Auto) (24-44) % [place] % (Auto) (2-6) % Eos % (Auto) (2-4) % Baso % (Auto) (0-1) % Sodium (140-148) mmol/L Potassium (3.6-5.2) mmol/L Chloride (100-108) mmol/L Carbon Dioxide (21-32) mmol/L Anion Gap (5.0-14.0) mmol/L BUN (7-18) mg/dL Creatinine (0.6-1.0) mg/dL Est Cr Clr Drug Dosing mL/min Estimated GFR (MDRD) (>60) Glucose (74-106) mg/dL Lactic Acid (0.4-2.0) mmol/L Calcium (8.5-10.1) mg/dL Iron (50-170) ug/dL TIBC (250-450) ug/dl % Saturation (20-55) % Ferritin (8-388) ng/ml Total Bilirubin (0.2-1.0) mg/dL AST (15-37) U/L ALT (12-78) U/L Alkaline Phosphatase (46-116) U/L Troponin I (0.000-0.056) ng/mL Total Protein (6.4-8.2) g/dL Albumin (3.4-5.0) g/dL Globulin (2.3-3.5) g/dL Albumin/Globulin Ratio (1.2-2.2) Urine Color Yellow (YELLOW) Urine Appearance Clear (CLEAR) Urine pH 6.0 (5.0-8.0) Ur Specific [place] 1.015 (1.008-1.030) Urine Protein Negative (NEGATIVE) mg/dL Urine Glucose (UA) Negative (NEGATIVE) mg/dL Urine Ketones Negative (NEGATIVE) mg/dL Urine Occult Blood Trace-intact H (NEGATIVE) Urine Nitrite Negative (NEGATIVE) Urine Bilirubin Negative (NEGATIVE) Urine Urobilinogen 0.2 (0.2-1.0) EU/dL Ur Leukocyte Esterase Trace H (NEGATIVE) Urine RBC Not seen (0-5) Urine WBC Not seen (0-5) Ur Epithelial Cells Few Urine Bacteria Not seen Blood Type Gel Antibody Screen Crossmatch Result Diagrams: 07/04/20 19:15 07/04/20 19:15 Imaging Impressions Last 24 hrs: All of the images below are personally reviewed Chest x-ray-lungs clear with no obvious mass, infiltrate or effusion. Heart size is normal. CT scan of the chest, abdomen and pelvis-some bronchiectasis with bronchial wall thickening. There appears to be some scarring in the apices of the lungs. She has cysts on both kidneys, right greater than left. Diverticulosis is noted. She has some calcifications in the great vessels. No acute findings. #1 Interpretation EKG Date: 07/04/20 Rhythm: Other (SVT) Rate (Beats/Min): 190 [place]: Normal P-Wave: Absent QRS: Normal ST-T: Depressed QT: Normal Comparison: Change From Previous EKG #2 Interpretation EKG Date: 07/04/20 Rhythm: NSR Rate (Beats/Min): 89 [place]on: Normal P-Wave: Present QRS: Normal ST-T: Normal QT: Normal Sepsis Event Note - Evaluation Sepsis Screening Result: No Definite Risk - Focused Exam Vital Signs: Vital Signs Temp Pulse Pulse Resp BP BP BP 07/04/20 22:35 85 20 105/60 07/04/20 21:00 87 20 105/61 07/04/20 20:45 94 118/58 L 07/04/20 20:30 92 18 98/60 07/04/20 20:20 91 97/53 L 07/04/20 20:01 91 113/58 L 07/04/20 19:50 89 20 110/60 07/04/20 19:40 86 106/62 07/04/20 19:30 90 102/61 07/04/20 19:05 35.3 C L 121 H 18 100/66 Pulse Ox 07/04/20 22:35 100 07/04/20 21:00 07/04/20 20:45 07/04/20 20:30 99 07/04/20 20:20 07/04/20 20:01 07/04/20 19:50 100 07/04/20 19:40 07/04/20 19:30 07/04/20 19:05 98 *Q Meaningful Use (ADM) - VTE Risk Assess *Q Each Risk Factor Represents 1 Point: Swollen Legs, Current, Abnormal Pulmonary Function (COPD) Total Score 1 Point Risk Factors: 2 Each Risk Factor Represents 2 Points: None Total Score 2 Point Risk Factors: 0 Each Risk Factor Represents 3 Points: Age 75 Years or Greater Total Score 3 Point Risk Factors: 3 Each Risk Factor Represents 5 Points: None Total Score 5 Point Risk Factors: 0 Venous Thromboembolism Risk Factor Score *Q: 5 - Problem List (1) Anemia due to blood loss, acute SNOMED Code(s): 473421561 ICD Code: D62 - ACUTE POSTHEMORRHAGIC ANEMIA Status: Acute Current Visit: Yes (2) Paroxysmal supraventricular tachycardia SNOMED Code(s): 86063429 ICD Code: I47.1 - SUPRAVENTRICULAR TACHYCARDIA Status: Acute Current Visit: Yes (3) Kidney disease, chronic, stage IV (GFR 15-29 ml/min) SNOMED Code(s): 337891093 ICD Code: N18.4 - CHRONIC KIDNEY DISEASE, STAGE 4 (SEVERE) Status: Chronic Current Visit: Yes (4) Rheumatoid arthritis SNOMED Code(s): 82427640 ICD Code: M06.9 - RHEUMATOID ARTHRITIS, UNSPECIFIED Status: Chronic Current Visit: Yes Qualifiers: Rheumatoid arthritis location: unspecified site Rheumatoid factor presence: with rheumatoid factor Qualified Code(s): M05.9 - Rheumatoid arthritis with rheumatoid factor, unspecified (5) COPD with emphysema SNOMED Code(s): 18452144 ICD Code: J43.9 - EMPHYSEMA, UNSPECIFIED Status: Chronic Current Visit: Yes Problem Details: O2 dependent Qualifiers: Emphysema type: unspecified Qualified Code(s): J43.9 - Emphysema, unspecified Problem List Initiated/Reviewed/Updated: Yes Orders Last 24hrs: Active Orders 24 hr Category Date Time Status Patient Status Manage Transfer [TRANSFER] Routine ADT 07/04/20 22:43 Ordered Cardiac Monitoring [RC] .As Directed Care 07/04/20 19:26 Active EKG Documentation Completion [RC] ASDIRECTED Care 07/04/20 19:26 Active Peripheral IV Care [RC] . DIRECTED Care 07/04/20 19:26 Active Chest 1V Frontal [CR] Urgent Exams 07/04/20 20:42 Taken RED BLOOD CELLS LP [BBK] Stat Lab 07/04/20 19:15 Results TYPE AND SCREEN [BBK] Stat Lab 07/04/20 19:15 Results Sodium Chloride 0.9% [Normal Saline] 1,000 ml Med 07/04/20 23:00 Ordered IV ASDIRECTED Sodium Chloride 0.9% [Saline Flush] Med 07/04/20 19:25 Active 10 ml FLUSH ASDIRECTED PRN Peripheral IV Insertion Adult [OM.PC] Stat Oth 07/04/20 19:25 Ordered Transfuse Red Blood Cells [COMM] Stat Oth 07/04/20 20:51 Ordered Resuscitation Status Routine Resus Stat 07/04/20 22:45 Ordered EKG 12 Lead [EK] Stat Ther 07/04/20 19:26 Ordered Medication Orders Sodium Chloride (Normal Saline) 1,000 mls @ 50 mls/hr IV ASDIRECTED YEN Sodium Chloride (Saline Flush) 10 ml FLUSH ASDIRECTED PRN PRN Reason: Keep Vein Open Assessment/Plan Comment:: ASSESSMENT AND PLAN - Anemia due to blood loss, acute-GI blood loss is suspected though patient has not definitively witnessed any. She is iron deficient. CT scan of the abdomen and pelvis did not reveal an obvious source of bleeding. She is quite symptomatic with her hemoglobin of less than 7 and transfused as planned and indicated. At this point she is not excited about endoscopy but will consider this. Differential diagnosis would include anemia due to chronic renal disease and chronic inflammation. -Transfuse 1 units of packed red blood cells in addition to ER order -Gentle IV fluids overnight -Recheck hemoglobin tomorrow morning -Consider iron supplement after hospital discharge -Consider additional work-up with endoscopy if patient will allow Paroxysmal supraventricular tachycardia-sounds like she has had multiple episodes over recent weeks as well as possibly a few years. Responded well to beta-myah in the emergency room. Troponin normal. 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 No evidence for exacerbation. -Continue home medications -Supplement oxygen Stage IV chronic kidney disease-it looks like from the clinic her baseline creatinine is about 1.6 but in the hospital here it has been 2.3. She has previously seen nephrology through the [facility] system. I suspect that her significant anemia is contributing to poor renal function. -Hold ARB Maintenance issues - - DVT prophylaxis -mechanical with possible hemorrhage - GI prophylaxis -no obvious indication - Nutrition -regular diet - Valdez catheter -not indicated CODE STATUS -CPR okay but patient does not wish to have any intubation Admission justification -this patient will be admitted for inpatient services and is medically appropriate meeting medical necessity for inpatient admission as outlined in my documentation. I reasonably expect the patient will require inpatient services that span a period time over 2 midnights. I reasonably expect this patient to be discharged or transferred within 96 hours [facility]. Disposition -I would anticipate discharge home after the hospital stay Primary care physician -[facility] in [place], [place] Rishabh Pedraza M.D. - Mortality Measure Prognosis:: Good
[2020-07-04] MEDS ORDERED: Melatonin 3 MG Tab PO PRN (23:12)
[2020-07-04] MEDS ORDERED: Albuterol 0.083% 2.5 MG/3 ML Neb Soln NEB PRN (23:12)
[2020-07-04] MEDS ORDERED: Ondansetron 4 MG Tab.DIS PO PRN (23:12)
[2020-07-04] MEDS ORDERED: Ondansetron 4 MG/2 ML SDV IV PRN (23:12)
[2020-07-04] MEDS ORDERED: Magnesium Hydroxide 400 MG/5 ML Susp 30 ML Cup PO PRN (23:12)
[2020-07-05] MEDS: Acetaminophen 325 MG Tab PO PRN ×3 (02:21→13:04)
[2020-07-05] MEDS: Sodium Chloride 0.9% 1,000 ML IV SCH ×2 (06:43→13:10)
[2020-07-05] MEDS: Albuterol 0.083% 2.5 MG/3 ML Neb Soln NEB SCH ×4 (07:03→20:31)
[2020-07-05] MEDS: TIOTROPIUM BROMIDE INH SCH (07:46)
[2020-07-05] MEDS: Aspirin 81 MG Tab.EC PO SCH (08:11)
[2020-07-05] MEDS: Metoprolol Tartrate 25 MG Tab PO SCH ×2 (08:11→20:31)
[2020-07-05] MEDS ORDERED: Non-Formulary Medication 1 Each (Tiotropium [Spiriva Handihaler] 18 MCG) IH SCH (09:00)
[2020-07-05] MEDS ORDERED: Tiotropium Bromide 4 GM Inhalation Spray (2.5mcg/1 dose; 10 doses) INH SCH (09:00)
--- NOTE | 2020-07-05 09:12 | PCM.PN ---
- General Info Date of Service: 07/05/20 Subjective Update: No acute events overnight. No recurrence of SVT. Blood pressures have been in the normal range but on the lower side. No reports of hematochezia or melena. Lower extremity edema has resolved. Patient feels stronger and more energetic today. Hemoglobin is slightly better but only up to 7.3. Oxygenation is stable. Kidney function has improved. Functional Status: Reports: Pain Controlled, Tolerating Diet - Review of Systems Pulmonary: Denies: Shortness of Breath Cardiovascular: Denies: Edema Neurological: Reports: Headache - Patient Data Vitals - Most Recent: Last Vital Signs Temp 36.7 C 07/05/20 07:56 Pulse 84 07/05/20 08:11 Resp 15 07/05/20 07:56 BP 120/58 L 07/05/20 08:11 Pulse Ox 97 07/05/20 07:56 Weight - Most Recent: 44.815 kg I&O - Last 24 Hours: Intake & Output 07/04/20 07/05/20 07/05/20 22:59 06:59 14:59 Intake Total 390 Output Total 300 Balance -300 390 Lab Results Last 24 Hours: Laboratory Results - last 24 hr 07/04/20 07/04/20 07/04/20 Range/Units 19:15 19:15 19:15 WBC 18.2 H (4.5-11.0) K/uL RBC 2.67 L (3.30-5.50) M/uL Hgb 6.8 L* (12.0-15.0) g/dL Hct 25.3 L (36.0-48.0) % MCV 95 (80-98) fL MCH 26 L (27-31) pg MCHC 27 L (32-36) % Plt Count 684 H (150-400) K/uL Neut % (Auto) 80 H (36-66) % Lymph % (Auto) 11 L (24-44) % Douglas % (Auto) 7 H (2-6) % Eos % (Auto) 1 L (2-4) % Baso % (Auto) 1 (0-1) % Sodium 137 L (140-148) mmol/L Potassium 4.6 (3.6-5.2) mmol/L Chloride 101 (100-108) mmol/L Carbon Dioxide 23 (21-32) mmol/L Anion Gap 17.6 H (5.0-14.0) mmol/L BUN 47 H D (7-18) mg/dL Creatinine 2.3 H (0.6-1.0) mg/dL Est Cr Clr Drug Dosing 14.07 mL/min Estimated GFR (MDRD) 20 L (>60) Glucose 114 H (74-106) mg/dL Lactic Acid 2.6 H (0.4-2.0) mmol/L Calcium 10.2 H (8.5-10.1) mg/dL Iron (50-170) ug/dL TIBC (250-450) ug/dl % Saturation (20-55) % Ferritin (8-388) ng/ml Total Bilirubin 0.2 (0.2-1.0) mg/dL AST 14 L (15-37) U/L ALT 13 (12-78) U/L Alkaline Phosphatase 59 (46-116) U/L Troponin I < 0.017 (0.000-0.056) ng/mL Total Protein 7.2 (6.4-8.2) g/dL Albumin 2.3 L (3.4-5.0) g/dL Globulin 4.9 H (2.3-3.5) g/dL Albumin/Globulin Ratio 0.5 L (1.2-2.2) Urine Color (YELLOW) Urine Appearance (CLEAR) Urine pH (5.0-8.0) Ur Specific [place] (1.008-1.030) Urine Protein (NEGATIVE) mg/dL Urine Glucose (UA) (NEGATIVE) mg/dL Urine Ketones (NEGATIVE) mg/dL Urine Occult Blood (NEGATIVE) Urine Nitrite (NEGATIVE) Urine Bilirubin (NEGATIVE) Urine Urobilinogen (0.2-1.0) EU/dL Ur Leukocyte Esterase (NEGATIVE) Urine RBC (0-5) Urine WBC (0-5) Ur Epithelial Cells Urine Bacteria Blood Type Gel Antibody Screen Crossmatch 07/04/20 07/04/20 07/04/20 Range/Units 19:15 19:15 19:15 WBC (4.5-11.0) K/uL RBC (3.30-5.50) M/uL Hgb (12.0-15.0) g/dL Hct (36.0-48.0) % MCV (80-98) fL MCH (27-31) pg MCHC (32-36) % Plt Count (150-400) K/uL Neut % (Auto) (36-66) % Lymph % (Auto) (24-44) % Douglas % (Auto) (2-6) % Eos % (Auto) (2-4) % Baso % (Auto) (0-1) % Sodium (140-148) mmol/L Potassium (3.6-5.2) mmol/L Chloride (100-108) mmol/L Carbon Dioxide (21-32) mmol/L Anion Gap (5.0-14.0) mmol/L BUN (7-18) mg/dL Creatinine (0.6-1.0) mg/dL Est Cr Clr Drug Dosing mL/min Estimated GFR (MDRD) (>60) Glucose (74-106) mg/dL Lactic Acid (0.4-2.0) mmol/L Calcium (8.5-10.1) mg/dL Iron 15 L (50-170) ug/dL TIBC 267 (250-450) ug/dl % Saturation 6 L (20-55) % Ferritin 49 (8-388) ng/ml Total Bilirubin (0.2-1.0) mg/dL AST (15-37) U/L ALT (12-78) U/L Alkaline Phosphatase (46-116) U/L Troponin I (0.000-0.056) ng/mL Total Protein (6.4-8.2) g/dL Albumin (3.4-5.0) g/dL Globulin (2.3-3.5) g/dL Albumin/Globulin Ratio (1.2-2.2) Urine Color (YELLOW) Urine Appearance (CLEAR) Urine pH (5.0-8.0) Ur Specific [place] (1.008-1.030) Urine Protein (NEGATIVE) mg/dL Urine Glucose (UA) (NEGATIVE) mg/dL Urine Ketones (NEGATIVE) mg/dL Urine Occult Blood (NEGATIVE) Urine Nitrite (NEGATIVE) Urine Bilirubin (NEGATIVE) Urine Urobilinogen (0.2-1.0) EU/dL Ur Leukocyte Esterase (NEGATIVE) Urine RBC (0-5) Urine WBC (0-5) Ur Epithelial Cells Urine Bacteria Blood Type A POSITIVE Gel Antibody Screen Negative Crossmatch See Detail 07/04/20 07/05/20 07/05/20 Range/Units 21:50 08:47 08:47 WBC 10.7 (4.5-11.0) K/uL RBC 2.77 L (3.30-5.50) M/uL Hgb 7.3 L (12.0-15.0) g/dL Hct 25.8 L (36.0-48.0) % MCV 93 (80-98) fL MCH 26 L (27-31) pg MCHC 28 L (32-36) % Plt Count 534 H (150-400) K/uL Neut % (Auto) (36-66) % Lymph % (Auto) (24-44) % Douglas % (Auto) (2-6) % Eos % (Auto) (2-4) % Baso % (Auto) (0-1) % Sodium 141 (140-148) mmol/L Potassium 4.0 (3.6-5.2) mmol/L Chloride 105 (100-108) mmol/L Carbon Dioxide 26 (21-32) mmol/L Anion Gap 9.8 (5.0-14.0) mmol/L BUN 38 H (7-18) mg/dL Creatinine 1.8 H (0.6-1.0) mg/dL Est Cr Clr Drug Dosing 16.75 mL/min Estimated GFR (MDRD) 27 L (>60) Glucose 85 (74-106) mg/dL Lactic Acid (0.4-2.0) mmol/L Calcium 9.5 (8.5-10.1) mg/dL Iron (50-170) ug/dL TIBC (250-450) ug/dl % Saturation (20-55) % Ferritin (8-388) ng/ml Total Bilirubin (0.2-1.0) mg/dL AST (15-37) U/L ALT (12-78) U/L Alkaline Phosphatase (46-116) U/L Troponin I (0.000-0.056) ng/mL Total Protein (6.4-8.2) g/dL Albumin (3.4-5.0) g/dL Globulin (2.3-3.5) g/dL Albumin/Globulin Ratio (1.2-2.2) Urine Color Yellow (YELLOW) Urine Appearance Clear (CLEAR) Urine pH 6.0 (5.0-8.0) Ur Specific [place] 1.015 (1.008-1.030) Urine Protein Negative (NEGATIVE) mg/dL Urine Glucose (UA) Negative (NEGATIVE) mg/dL Urine Ketones Negative (NEGATIVE) mg/dL Urine Occult Blood Trace-intact H (NEGATIVE) Urine Nitrite Negative (NEGATIVE) Urine Bilirubin Negative (NEGATIVE) Urine Urobilinogen 0.2 (0.2-1.0) EU/dL Ur Leukocyte Esterase Trace H (NEGATIVE) Urine RBC Not seen (0-5) Urine WBC Not seen (0-5) Ur Epithelial Cells Few Urine Bacteria Not seen Blood Type Gel Antibody Screen Crossmatch Med Orders - Current: Current Medications Acetaminophen (Tylenol) 650 mg PO Q4H PRN PRN Reason: Pain (Mild 1-3)/fever Last Admin: 07/05/20 06:45 Dose: 650 mg Documented by: Albuterol (Proventil Neb Soln) 2.5 mg NEB QIDRT [facility] Last Admin: 07/05/20 07:03 Dose: 2.5 mg Documented by: Albuterol (Proventil Neb Soln) 2.5 mg NEB Q4H PRN PRN Reason: Shortness Of Breath/wheezing Aspirin (Halfprin) 81 mg PO DAILY [facility] Last Admin: 07/05/20 08:11 Dose: 81 mg Documented by: Sodium Chloride (Normal Saline) 1,000 mls @ 50 mls/hr IV ASDIRECTED [facility] Last Admin: 07/05/20 06:43 Dose: 50 mls/hr Documented by: Magnesium Hydroxide (Milk Of Magnesia) 30 ml PO Q12H PRN PRN Reason: Constipation Melatonin (Melatonin) 9 mg PO BEDTIME PRN PRN Reason: Sleep Metoprolol Tartrate (Lopressor) 12.5 mg PO Q12H [facility] Last Admin: 07/05/20 08:11 Dose: 12.5 mg Documented by: Ondansetron HCl (Zofran) 4 mg IV Q6H PRN PRN Reason: Nausea/Vomiting Ondansetron HCl (Zofran Odt) 4 mg PO Q6H PRN PRN Reason: Nausea able to take PO Senna/Docusate Sodium (Senna Plus) 1 tab PO BID PRN PRN Reason: Constipation Sodium Chloride (Saline Flush) 10 ml FLUSH ASDIRECTED PRN PRN Reason: Keep Vein Open Tiotropium [place] (Spiriva Respimat) 0 gm INH DAILYRT [facility] Last Admin: 07/05/20 07:46 Dose: 4 gm Documented by: Discontinued Medications Adenosine (Adenocard) 6 mg IVPUSH NOW ONE Stop: 07/04/20 19:07 Last Admin: 07/04/20 19:18 Dose: 6 mg Documented by: Adenosine (Adenocard) 12 mg IVPUSH NOW ONE Stop: 07/04/20 19:07 Last Admin: 07/04/20 20:03 Dose: Not Given Documented by: Sodium Chloride (Normal Saline) 1,000 mls @ 125 mls/hr IV ASDIRECTED [facility] Last Admin: 07/04/20 20:15 Dose: 125 mls/hr Documented by: Metoprolol Tartrate (Lopressor) 2.5 mg IVPUSH ONETIME ONE Stop: 07/04/20 19:26 Last Admin: 07/04/20 20:01 Dose: 2.5 mg Documented by: - Exam Quality Assessment: Supplemental Oxygen General: Alert, Oriented, Cooperative, No Acute Distress Lungs: Normal Respiratory Effort. No: Wheezing Cardiovascular: Regular Rate, Regular Rhythm GI/Abdominal Exam: Soft, No Distention Extremities: No Pedal Edema. No: Increased Warmth Skin: Warm, Dry Psy/Mental Status: Alert, Normal Affect Sepsis Event Note - Evaluation Sepsis Screening Result: No Definite Risk - Focused Exam Vital Signs: Vital Signs Temp Temp Pulse Pulse Resp BP BP 07/05/20 08:11 84 120/58 L 07/05/20 07:56 36.7 C 87 15 07/05/20 06:00 96 22 H 07/05/20 04:00 89 22 H 07/05/20 03:11 36.8 C 92 07/05/20 03:03 92 14 07/05/20 02:30 36.8 C 96 22 H 07/05/20 02:00 36.9 C 87 21 H 07/05/20 01:30 36.7 C 17 07/05/20 01:00 36.5 C 84 22 H 07/05/20 00:45 36.6 C 23 H 07/05/20 00:37 36.4 C 82 21 H 07/05/20 00:23 36.6 C 86 22 H 07/05/20 00:08 36.5 C 85 23 H 07/05/20 00:00 36.6 C 87 22 H 07/04/20 23:53 36.6 C 81 23 H 07/04/20 23:43 36.0 C L 88 22 H 128/63 07/04/20 22:35 85 20 105/60 BP Pulse Ox 07/05/20 08:11 07/05/20 07:56 113/56 L 97 07/05/20 06:00 113/56 L 95 07/05/20 04:00 127/67 98 07/05/20 03:11 133/66 07/05/20 03:03 132/68 94 L 07/05/20 02:30 119/64 94 L 07/05/20 02:00 119/68 97 07/05/20 01:30 130/47 L 95 07/05/20 01:00 107/49 L 98 07/05/20 00:45 107/51 L 98 07/05/20 00:37 105/44 L 97 07/05/20 00:23 102/48 L 07/05/20 00:08 99/47 L 07/05/20 00:00 99/47 L 97 07/04/20 23:53 99/47 L 07/04/20 23:43 99 07/04/20 22:35 100 - Problem List & Annotations (1) Anemia due to blood loss, acute SNOMED Code(s): 303931042 Code(s): D62 - ACUTE POSTHEMORRHAGIC ANEMIA Status: Acute Current Visit: Yes (2) Paroxysmal supraventricular tachycardia SNOMED Code(s): 31280808 Code(s): I47.1 - SUPRAVENTRICULAR TACHYCARDIA Status: Acute Current Visit: Yes (3) Kidney disease, chronic, stage IV (GFR 15-29 ml/min) SNOMED Code(s): 643846876 Code(s): N18.4 - CHRONIC KIDNEY DISEASE, STAGE 4 (SEVERE) Status: Chronic Current Visit: Yes (4) Rheumatoid arthritis SNOMED Code(s): 11338560 Code(s): M06.9 - RHEUMATOID ARTHRITIS, UNSPECIFIED Status: Chronic Current Visit: Yes Qualifiers: Rheumatoid arthritis location: unspecified site Rheumatoid factor presence: with rheumatoid factor Qualified Code(s): M05.9 - Rheumatoid arthritis with rheumatoid factor, unspecified (5) COPD with emphysema SNOMED Code(s): 03356575 Code(s): J43.9 - EMPHYSEMA, UNSPECIFIED Status: Chronic Current Visit: Yes Qualifiers: Emphysema type: unspecified Qualified Code(s): J43.9 - Emphysema, unspecified Annotation/Comment:: O2 dependent - Problem List Review Problem List Initiated/Reviewed/Updated: Yes - My Orders Last 24 Hours: My Active Orders 07/04/20 22:45 Resuscitation Status Routine 07/04/20 23:00 Sodium Chloride 0.9% [Normal Saline] 1,000 ml IV ASDIRECTED 07/04/20 23:12 Acetaminophen [TylenoL] 650 mg PO Q4H PRN Albuterol [Proventil Neb Soln] 2.5 mg NEB Q4H PRN Docusate Sodium/Sennosides [Senna Plus] 1 tab PO BID PRN Magnesium Hydroxide [Milk of Magnesia] 30 ml PO Q12H PRN Melatonin 9 mg PO BEDTIME PRN Ondansetron [Zofran ODT] 4 mg PO Q6H PRN Ondansetron [Zofran] 4 mg IV Q6H PRN 07/04/20 23:12 Patient Status [ADT] Routine Antiembolic Devices [RC] .Routine Cardiac Monitoring [RC] CONTINUOUS Intake and Output [RC] QSHIFT Notify Provider Vital Signs [RC] ASDIRECTED Oxygen Therapy [RC] PRN RT Aerosol Therapy [RC] ASDIRECTED Up With Assistance [RC] ASDIRECTED VTE/DVT Education [RC] Per Unit Routine Vital Signs [RC] Q2HR Antiembolic Hose [OM.PC] Routine 07/05/20 07:00 Albuterol [Proventil Neb Soln] 2.5 mg NEB QIDRT 07/05/20 07:30 Tiotropium [place] [Spiriva Respimat] 0 gm INH DAILYRT 07/05/20 09:00 Aspirin [Halfprin] 81 mg PO DAILY Metoprolol Tartrate [Lopressor] 12.5 mg PO Q12H 07/05/20 09:15 Transfuse Red Blood Cells [COMM] Routine 07/06/20 05:00 BASIC METABOLIC PANEL,BMP [CHEM] Timed CBC W/O DIFF,HEMOGRAM [HEME] Timed (1) - Plan Plan:: ASSESSMENT AND PLAN - Anemia due to blood loss, acute-GI blood loss is suspected though patient has not definitively witnessed any. Symptomatically better after 1 unit but only minimal response. Patient is not interested in endoscopy at this time. -Transfuse 1 units of packed red blood cells this morning -Recheck hemoglobin tomorrow morning -Consider iron supplement after hospital discharge Paroxysmal supraventricular tachycardia-sounds like she has had multiple episodes over recent weeks as well as possibly a few years. Responded well to beta-myah and no recurrence. 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 No evidence for exacerbation. -Continue home medications -Supplement oxygen Stage IV chronic kidney disease-it looks like from the clinic her baseline creatinine is about 1.6 but in the hospital here it has been 2.3. Creatinine has improved overnight and blood pressure has been stable. -Hold ARB (discontinue?) Maintenance issues - - DVT prophylaxis -mechanical with possible hemorrhage - GI prophylaxis -no obvious indication - Nutrition -regular diet - Valdez catheter -not indicated CODE STATUS -CPR okay but patient does not wish to have any intubation Disposition -I would anticipate discharge home after the hospital stay Primary care physician -Jc in [place], [place] Rishabh Pedraza M.D.
[2020-07-05] MEDS: Acetaminophen/Caffeine 500-65 MG Tab PO PRN ×2 (16:48→23:32)
[2020-07-06] MEDS: Albuterol 0.083% 2.5 MG/3 ML Neb Soln NEB SCH ×4 (07:05→20:27)
[2020-07-06] MEDS: TIOTROPIUM BROMIDE INH SCH (07:05)
[2020-07-06] MEDS: Metoprolol Tartrate 25 MG Tab PO SCH ×2 (08:33→20:28)
[2020-07-06] MEDS: Aspirin 81 MG Tab.EC PO SCH (08:34)
[2020-07-06] MEDS: Acetaminophen/Caffeine 500-65 MG Tab PO PRN (08:37)
--- NOTE | 2020-07-06 09:54 | CR ---
CHEST: Portable 07/04/2020 at 9:00 PM CLINICAL HISTORY:Palpitations COMPARISON:06/09/2020 FINDINGS: The heart is mildly enlarged. Pulmonary vascularity is normal. There are atherosclerotic changes in the aorta. There are scattered pleural parenchymal scarring particularly in the apices. There is some patchy fibrosis in the lung bases, greater on the left. There are no pleural effusions. IMPRESSION: Moderate changes of COPD with patchy pleural parenchymal scarring and some patchy fibrosis. Scattered nodularity seen on the prior study has involuted somewhat.
[2020-07-06] MEDS ORDERED: Sodium Ferric Gluconate Cmplex 250 MG in Sodium Chloride 0.9% 100 ML IV ONE (14:00)
--- NOTE | 2020-07-06 15:12 | PCM.PN ---
- General Info Date of Service: 07/06/20 Subjective Update: Ms. Ordonez has remained stable since yesterday. She still requires some assistance with transfers and ambulation. Hemoglobin stable following transfusion of 2 units of red blood cells, no evidence of active bleeding. Functional Status: Reports: Tolerating Diet, Ambulating, Urinating - Review of Systems General: Reports: Weakness, Fatigue. Denies: Fever, Chills Pulmonary: Reports: No Symptoms Cardiovascular: Reports: No Symptoms Gastrointestinal: Reports: No Symptoms - Patient Data Vitals - Most Recent: Last Vital Signs Temp 98.9 F 07/06/20 12:58 Pulse 85 07/06/20 14:32 Resp 18 07/06/20 12:58 BP 138/68 07/06/20 12:58 Pulse Ox 98 07/06/20 12:58 Weight - Most Recent: 98 lb 12.803 oz I&O - Last 24 Hours: Intake & Output 07/06/20 07/06/20 07/06/20 06:59 14:59 22:59 Intake Total 120 580 Balance 120 580 Lab Results Last 24 Hours: Laboratory Results - last 24 hr 07/06/20 07/06/20 Range/Units 04:10 04:10 WBC 11.4 H (4.5-11.0) K/uL RBC 3.37 (3.30-5.50) M/uL Hgb 9.0 L (12.0-15.0) g/dL Hct 31.1 L (36.0-48.0) % MCV 92 (80-98) fL MCH 27 (27-31) pg MCHC 29 L (32-36) % Plt Count 487 H (150-400) K/uL Sodium 143 (140-148) mmol/L Potassium 4.4 (3.6-5.2) mmol/L Chloride 109 H (100-108) mmol/L Carbon Dioxide 25 (21-32) mmol/L Anion Gap 13.4 (5.0-14.0) mmol/L BUN 32 H (7-18) mg/dL Creatinine 1.5 H (0.6-1.0) mg/dL Est Cr Clr Drug Dosing 20.10 mL/min Estimated GFR (MDRD) 33 L (>60) Glucose 90 (74-106) mg/dL Calcium 9.4 (8.5-10.1) mg/dL Med Orders - Current: Current Medications Acetaminophen (Tylenol) 650 mg PO Q4H PRN PRN Reason: Pain (Mild 1-3)/fever Last Admin: 07/05/20 13:04 Dose: 650 mg Documented by: Acetaminophen/Caffeine (Excedrin Tension Headache) 1 tab PO Q6HR PRN PRN Reason: Headache Last Admin: 07/06/20 08:37 Dose: 1 tab Documented by: Albuterol (Proventil Neb Soln) 2.5 mg NEB QIDRT [facility] Last Admin: 07/06/20 10:41 Dose: 2.5 mg Documented by: Albuterol (Proventil Neb Soln) 2.5 mg NEB Q4H PRN PRN Reason: Shortness Of Breath/wheezing Aspirin (Halfprin) 81 mg PO DAILY [facility] Last Admin: 07/06/20 08:34 Dose: 81 mg Documented by: Ferric Sodium Gluconate Complex 250 mg/ Sodium Chloride 120 mls @ 30 mls/hr IV ONETIME ONE Stop: 07/06/20 17:59 Last Admin: 07/06/20 13:12 Dose: 30 mls/hr Documented by: Ferric Sodium Gluconate Complex 250 mg/ Sodium Chloride 120 mls @ 30 mls/hr IV ONETIME ONE Stop: 07/07/20 12:59 Magnesium Hydroxide (Milk Of Magnesia) 30 ml PO Q12H PRN PRN Reason: Constipation Melatonin (Melatonin) 9 mg PO BEDTIME PRN PRN Reason: Sleep Metoprolol Tartrate (Lopressor) 12.5 mg PO Q12H [facility] Last Admin: 07/06/20 08:33 Dose: 12.5 mg Documented by: Ondansetron HCl (Zofran) 4 mg IV Q6H PRN PRN Reason: Nausea/Vomiting Ondansetron HCl (Zofran Odt) 4 mg PO Q6H PRN PRN Reason: Nausea able to take PO Senna/Docusate Sodium (Senna Plus) 1 tab PO BID PRN PRN Reason: Constipation Sodium Chloride (Saline Flush) 10 ml FLUSH ASDIRECTED PRN PRN Reason: Keep Vein Open Tiotropium [place] (Spiriva Respimat) [facility] Last Admin: 07/06/20 07:05 Dose: 4 gm Documented by: Discontinued Medications Adenosine (Adenocard) 6 mg IVPUSH NOW ONE Stop: 07/04/20 19:07 Last Admin: 07/04/20 19:18 Dose: 6 mg Documented by: Adenosine (Adenocard) 12 mg IVPUSH NOW ONE Stop: 07/04/20 19:07 Last Admin: 07/04/20 20:03 Dose: Not Given Documented by: Sodium Chloride (Normal Saline) 1,000 mls @ 125 mls/hr IV ASDIRECTED Y[facility] Last Admin: 07/04/20 20:15 Dose: 125 mls/hr Documented by: Sodium Chloride (Normal Saline) 1,000 mls @ 50 mls/hr IV ASDIRECTED YEN Stop: 07/05/20 14:00 Last Admin: 07/05/20 13:10 Dose: 50 mls/hr Documented by: Metoprolol Tartrate (Lopressor) 2.5 mg IVPUSH ONETIME ONE Stop: 07/04/20 19:26 Last Admin: 07/04/20 20:01 Dose: 2.5 mg Documented by: - Exam Quality Assessment: DVT Prophylaxis General: Alert, Oriented, Cooperative, Mild Distress Lungs: Clear to Auscultation, Normal Respiratory Effort, Decreased Breath Sounds Cardiovascular: Regular Rate, Regular Rhythm, No Murmurs GI/Abdominal Exam: Soft, Non-Tender, No Organomegaly, No Distention Extremities: Non-Tender, No Pedal Edema Sepsis Event Note - Evaluation Sepsis Screening Result: No Definite Risk - Focused Exam Vital Signs: Vital Signs Temp Pulse Pulse Resp BP BP Pulse Ox 07/06/20 14:32 85 07/06/20 12:58 98.9 F 77 18 138/68 98 07/06/20 11:00 90 133/66 94 L 07/06/20 10:41 94 07/06/20 08:33 95 136/66 07/06/20 07:55 96.8 F L 95 18 136/66 100 07/06/20 07:06 78 07/06/20 04:20 97.6 F 88 24 H 125/57 L 94 L - Problem List Review Problem List Initiated/Reviewed/Updated: Yes - My Orders Last 24 Hours: My Active Orders 07/06/20 14:00 Sodium Ferric Gluconate Cmplex [Ferrlecit IV] 250 mg Sodium Chloride 0.9% [Normal Saline] 100 ml IV ONETIME 07/07/20 05:00 BASIC METABOLIC PANEL,BMP [CHEM] Timed CBC WITH AUTO DIFF [HEME] Timed 07/07/20 09:00 Sodium Ferric Gluconate Cmplex [Ferrlecit IV] 250 mg Sodium Chloride 0.9% [Normal Saline] 100 ml IV ONETIME - Plan Plan:: ASSESSMENT AND PLAN - Anemia due to blood loss, acute-GI blood loss is suspected though patient has not definitively witnessed any. Symptomatically better after 1 unit but only minimal response. Patient is not interested in endoscopy at this time. Iron level obtained and found to be low. -IV iron today and tomorrow -Recheck hemoglobin tomorrow morning -Consider iron supplement after hospital discharge Paroxysmal supraventricular tachycardia-sounds like she has had multiple episodes over recent weeks as well as possibly a few years. Responded well to beta-myah and no recurrence. 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 No evidence for exacerbation. -Continue home medications -Supplement oxygen Stage IIIb chronic kidney disease-it looks like from the clinic her baseline creatinine is about 1.6. Renal function has improved with hydration -Hold ARB (discontinue?) Maintenance issues - - DVT prophylaxis -mechanical with possible hemorrhage - GI prophylaxis -no obvious indication - Nutrition -regular diet - [place]dez catheter -not indicated CODE STATUS -CPR okay but patient does not wish to have any intubation Disposition -I would anticipate discharge home after the hospital stay Primary care physician -Jc in [place], [place]
[2020-07-06] MEDS: Acetaminophen 325 MG Tab PO PRN (16:42)
[2020-07-07] MEDS: Acetaminophen/Caffeine 500-65 MG Tab PO PRN ×3 (01:23→15:43)
[2020-07-07] MEDS: Albuterol 0.083% 2.5 MG/3 ML Neb Soln NEB SCH ×3 (07:12→14:27)
[2020-07-07] MEDS: TIOTROPIUM BROMIDE INH SCH (07:13)
[2020-07-07] MEDS ORDERED: Sodium Ferric Gluconate Cmplex 250 MG in Sodium Chloride 0.9% 100 ML IV ONE (09:00)
[2020-07-07] MEDS: Aspirin 81 MG Tab.EC PO SCH (09:09)
[2020-07-07] MEDS: Metoprolol Tartrate 25 MG Tab PO SCH (09:09)
[2020-07-07 10:43] VITALS: BP 131/69; PULSE 86
--- NOTE | 2020-07-07 11:21 | PCM.DCSUM1 ---
Discharge Summary - Hospital Course Brief History: Ms. Ordonez is an 85-year-old woman who was admitted through the emergency department with weakness and palpitations secondary to severe anemia, acute kidney injury, and paroxysmal SVT. - Discharge Data Discharge Date: 07/07/20 Discharge Disposition: Home, Self-Care 01 Condition: Stable - Referral to Home Health Primary Care Physician: PCP None - Discharge Diagnosis/Problem(s) (1) Microcytic anemia SNOMED Code(s): 561144778 ICD Code: D50.9 - IRON DEFICIENCY ANEMIA, UNSPECIFIED Status: Acute Current Visit: Yes (2) Iron deficiency SNOMED Code(s): 17685743 ICD Code: E61.1 - IRON DEFICIENCY Status: Acute Current Visit: Yes (3) CKD (chronic kidney disease) stage 3, GFR 30-59 ml/min SNOMED Code(s): 105453233 ICD Code: N18.30 - CHRONIC KIDNEY DISEASE, STAGE 3 UNSPECIFIED Status: A cute Current Visit: Yes (4) Palliative care status SNOMED Code(s): 092181217 ICD Code: Z51.5 - ENCOUNTER FOR PALLIATIVE CARE Status: Acute Current Visit: Yes (5) Paroxysmal supraventricular tachycardia SNOMED Code(s): 79180664 ICD Code: I47.1 - SUPRAVENTRICULAR TACHYCARDIA Status: Acute Current Visit: Yes (6) Rheumatoid arthritis SNOMED Code(s): 95907855 ICD Code: M06.9 - RHEUMATOID ARTHRITIS, UNSPECIFIED Status: Chronic Current Visit: Yes Qualifiers: Rheumatoid arthritis location: unspecified site Rheumatoid factor presence: with rheumatoid factor Qualified Code(s): M05.9 - Rheumatoid arthritis with rheumatoid factor, unspecified (7) COPD with emphysema SNOMED Code(s): 90547200 ICD Code: J43.9 - EMPHYSEMA, UNSPECIFIED Status: Chronic Current Visit: Yes Problem Details: O2 dependent Qualifiers: Emphysema type: unspecified Qualified Code(s): J43.9 - Emphysema, unspecified (8) NIKIA (acute kidney injury) SNOMED Code(s): 23677219, 97233837 ICD Code: N17.9 - ACUTE KIDNEY FAILURE, UNSPECIFIED Status: Acute Current Visit: Yes - Patient Summary/Data Consults: Consultations 07/06/20 07:00 PT Evaluation and Treatment [CONS] Routine Please Evaluate and Treat. PT Reason for Consult: Strengthening This query below is only for informational purposes and is not editable. Admission Diagnosis/Problem: Anemia due to blood loss Hospital Course: Ms. Ordonez presented to the emergency room with the sensation that something is running across her chest. She describes what sound like palpitations followed by a warmth that spreads from her chest up into her neck and then her head. She becomes dizzy and lightheaded but has not passed out. She had a couple of these episodes today and has had several of them over the last 2 to 3 months and she thinks maybe she has been having them even for 2 or 3 years. They seem to be more intense in recent days. She does not describe any chest pain or press ure but does feel short of breath with the episodes. They last for just a short while before resolving on their own. She had an episode while she was in the emergency room and her heart rate was 190 with a rhythm that appeared to be SVT. She reports significant fatigue over the last month or so but has not really felt well for the last 6 months. Appetite is good with the exception of about 3 weeks ago when she was sick with what sounds like a Covid infection though she was never tested. Oxygenation is stable on her usual 2 L. She has noticed lower extremity swelling over the last couple of weeks and this is limited to her ankles. Work-up in the emergency room revealed significant tachycardia with SVT. This slowed to a sinus tachycardia after adenosine and then has slowed further to a normal sinus rhythm. Laboratory work-up revealed leukocytosis and thrombocytosis as well as anemia with hemoglobin of less than 7. Her creatinine is 2.3 which is where it has been the last couple times it has been checked here at the hospital. She had a CT scan of the chest, abdomen and pelvis which showed some cystic kidney disease and some bronchiectasis but no impressive acute findings. She is going to be admitted for management of the anemia which is suspected to be due to acute but occult blood loss as well as the SVT and work-up of her kidney disease which is worsening with review of her [facility] records. Admission she did receive IV fluids for hydration as well as transfusion of 1 unit of red blood cells. There was no evidence of active GI bleeding during her hospital stay. There was only modest improvement in hemoglobin level with transfusion, so she was transfused a second unit of red blood cells. Iron level was obtained and found to be low. She received 2 doses of IV iron prior to discharge and will be discharged home on oral iron supplement. She was seen and evaluated by physical therapy during hospital stay and did improve as far as overall strength to the point where she will be safe for discharged home. She will remain on supplemental oxygen as previously prescribed. She was noted to have evidence of acute kidney injury on admission, complicating chronic kidney disease stage IIIb. Renal function improved significantly during hospitalization with hydration. We discussed further evaluation and the likelihood that there is an underlying source of chronic GI blood loss. Upper and lower endoscopy were recommended to the patient which she refused. At the present time she would continue to except intermittent transfusions but does not want further aggressive intervention or evaluation. Activity will be as tolerated and she will resume her usual diet. Follow-up appointment will be scheduled with her primary care provider within 1 week, BMP and CBC will be obtained at the time of follow-up appointment. - Patient Instructions Diet: Low Sodium Activity: As Tolerated - Discharge Plan *PRESCRIPTION DRUG MONITORING PROGRAM REVIEWED*: Not Applicable *COPY OF PRESCRIPTION DRUG MONITORING REPORT IN PATIENT OMAR: Not Applicable Prescriptions/Med Rec: Iron Polysaccharide Complex [Ezfe 200] 200 mg PO BID #60 capsule Home Medications: Home Meds Aspirin [Adult Low Dose Aspirin EC] 81 mg PO DAILY 02/15/20 [History] Telmisartan 40 mg PO DAILY 02/15/20 [History] Tiotropium [Spiriva Handihaler] 18 mcg IH DAILY 02/15/20 [History] Albuterol Sulfate 1 dose INH ASDIRECTED 07/04/20 [History] Albuterol [Proventil Neb Soln] 2.5 mg NEB QID 07/04/20 [History] Iron Polysaccharide Complex [Ezfe 200] 200 mg PO BID #60 capsule 07/07/20 [Rx] Referrals: Carmelina Hutchins NP [Ordering Only Provider] - 07/13/20 8:45 am (Please arrive 15 minutes prior to your appointment to register and have labs drawn.) - Discharge Summary/Plan Comment DC Time >30 min.: No - Patient Data Vitals - Most Recent: Last Vital Signs Temp 98.2 F 07/07/20 10:37 Pulse 86 07/07/20 10:37 Resp 18 07/07/20 10:37 BP 131/69 07/07/20 10:37 Pulse Ox 96 12/08/20 10:37 Weight - Most Recent: 98 lb 12.803 oz I&O - Last 24 hours: Intake & Output 07/06/20 07/07/20 07/07/20 22:59 06:59 14:59 Intake Total 620 600 Balance 620 600 Lab Results - Last 24 hrs: Laboratory Results - last 24 hr 07/07/20 07/07/20 Range/Units 05:52 05:52 WBC 10.0 (4.5-11.0) K/uL RBC 3.24 L (3.30-5.50) M/uL Hgb 8.6 L (12.0-15.0) g/dL Hct 30.4 L (36.0-48.0) % MCV 94 (80-98) fL MCH 27 (27-31) pg MCHC 28 L (32-36) % Plt Count 485 H (150-400) K/uL Add Manual Diff Yes Neutrophils % (Manual) 69 H (36-66) % Band Neutrophils % 4 L (5-11) % Lymphocytes % (Manual) 14 L (24-44) % Monocytes % (Manual) 9 H (2-6) % Eosinophils % (Manual) 4 (2-4) % Poikilocytosis Moderate H Anisocytosis Marked H Sodium 143 (140-148) mmol/L Potassium 4.2 (3.6-5.2) mmol/L Chloride 107 (100-108) mmol/L Carbon Dioxide 25 (21-32) mmol/L Anion Gap 11.2 (5.0-14.0) mmol/L BUN 25 H (7-18) mg/dL Creatinine 1.2 H (0.6-1.0) mg/dL Est Cr Clr Drug Dosing 25.13 mL/min Estimated GFR (MDRD) 43 L (>60) Glucose 81 (74-106) mg/dL Calcium 9.6 (8.5-10.1) mg/dL Med Orders - Current: Current Medications Acetaminophen (Tylenol) 650 mg PO Q4H PRN PRN Reason: Pain (Mild 1-3)/fever Last Admin: 07/06/20 16:42 Dose: 650 mg Documented by: Acetaminophen/Caffeine (Excedrin Tension Headache) 1 tab PO Q6HR PRN PRN Reason: Headache Last Admin: 07/07/20 09:14 Dose: 1 tab Documented by: Albuterol (Proventil Neb Soln) 2.5 mg NEB QIDRT [facility] Last Admin: 07/07/20 10:58 Dose: Not Given Documented by: Albuterol (Proventil Neb Soln) 2.5 mg NEB Q4H PRN PRN Reason: Shortness Of Breath/wheezing Aspirin (Halfprin) 81 mg PO DAILY [facility] Last Admin: 07/07/20 09:09 Dose: 81 mg Documented by: Ferric Sodium Gluconate Complex 250 mg/ Sodium Chloride 120 mls @ 30 mls/hr IV ONETIME ONE Stop: 07/07/20 12:59 Last Admin: 07/07/20 10:26 Dose: 30 mls/hr Documented by: Magnesium Hydroxide (Milk Of Magnesia) 30 ml PO Q12H PRN PRN Reason: Constipation Melatonin (Melatonin) 9 mg PO BEDTIME PRN PRN Reason: Sleep Metoprolol Tartrate (Lopressor) 12.5 mg PO Q12H [facility] Last Admin: 07/07/20 09:09 Dose: 12.5 mg Documented by: Ondansetron HCl (Zofran) 4 mg IV Q6H PRN PRN Reason: Nausea/Vomiting Ondansetron HCl (Zofran Odt) 4 mg PO Q6H PRN PRN Reason: Nausea able to take PO Senna/Docusate Sodium (Senna Plus) 1 tab PO BID PRN PRN Reason: Constipation Sodium Chloride (Saline Flush) 10 ml FLUSH ASDIRECTED PRN PRN Reason: Keep Vein Open Tiotropium [facility] ([facility] Last Admin: 07/07/20 07:13 Dose: 4 gm Documented by: Discontinued Medications Adenosine (Adenocard) 6 mg IVPUSH NOW ONE Stop: 07/04/20 19:07 Last Admin: 07/04/20 19:18 Dose: 6 mg Documented by: Adenosine (Adenocard) 12 mg IVPUSH NOW ONE Stop: 07/04/20 19:07 Last Admin: 07/04/20 20:03 Dose: Not Given Documented by: Sodium Chloride (Normal Saline) 1,000 mls @ 125 mls/hr IV ASDIRECTED [facility] Last Admin: 07/04/20 20:15 Dose: 125 mls/hr Documented by: Sodium Chloride (Normal Saline) 1,000 mls @ 50 mls/hr IV ASDIRECTED [facility] Stop: 07/05/20 14:00 Last Admin: 07/05/20 13:10 Dose: 50 mls/hr Documented by: Ferric Sodium Gluconate Complex 250 mg/ Sodium Chloride 120 mls @ 30 mls/hr IV ONETIME ONE Stop: 07/06/20 17:59 Last Admin: 07/06/20 13:12 Dose: 30 mls/hr Documented by: Metoprolol Tartrate (Lopressor) 2.5 mg IVPUSH ONETIME ONE Stop: 07/04/20 19:26 Last Admin: 07/04/20 20:01 Dose: 2.5 mg Documented by: - Exam General: Reports: Alert, Oriented, Cooperative, No Acute Distress Lungs: Reports: Clear to Auscultation, Normal Respiratory Effort, Decreased Breath Sounds Cardiovascular: Reports: Regular Rate, Regular Rhythm, No Murmurs GI/Abdominal Exam: Soft, Non-Tender, No Organomegaly, No Distention Extremities: Non-Tender, No Pedal Edema
== END 2020-07-07 16:15 | disposition home or self-care (01) | DRG 812 ==
LOC: JP.ED 19:02 → JP.ICU 22:43 → JP.MS 07-05 14:30
PROVIDERS: ADMIT Internal Medicine; ATTEND Hospitalist
PROC: 30233N1 Transfusion of Nonautologous Red Blood Cells into Peripheral Vein, Percutaneous Approach (ICD-10-PCS; principal; 2020-07-04)
DX: D62 Acute posthemorrhagic anemia (principal); D64.9 Anemia, unspecified; N17.9 Acute kidney failure, unspecified; I47.1 Supraventricular tachycardia; Z51.5 Encounter for palliative care; E61.1 Iron deficiency; J44.9 Chronic obstructive pulmonary disease, unspecified; M05.9 Rheumatoid arthritis with rheumatoid factor, unspecified; J43.9 Emphysema, unspecified; E78.00 Pure hypercholesterolemia, unspecified; I10 Essential (primary) hypertension; I49.9 Cardiac arrhythmia, unspecified; Z87.01 Personal history of pneumonia (recurrent); K21.9 Gastro-esophageal reflux disease without esophagitis; Z98.49 Cataract extraction status, unspecified eye; Z98.890 Other specified postprocedural states; M19.90 Unspecified osteoarthritis, unspecified site; G89.29 Other chronic pain; M54.9 Dorsalgia, unspecified; M10.9 Gout, unspecified; N18.30 Chronic kidney disease, stage 3 unspecified; Z79.82 Long term (current) use of aspirin; Z79.899 Other long term (current) drug therapy; Z88.5 Allergy status to narcotic agent
CPT/HCPCS: 36415; 36430; 71045; 71045-26; 71250; 74176; 80048; 80053; 81001; 82728; 83550; 83605; 84484; 85025; 85027; 86850; 86900; 86901; 86920; 86922; 92950; 93005; 93010; 94640; 96374; 96375; 97162-GP; 97535-GP; 99285; 99285-25; A9270-GY; J0153; J2916; J3490; J7030; P9016

== ENCOUNTER 2020-07-14 23:40 | Emergency (ER) | payer MEDICARE ==
[2020-07-15 00:05] VITALS: BP 137/74; PULSE 107
[2020-07-15] MEDS ORDERED: fentaNYL 100 MCG/2 ML SDV IM ONE (00:46)
--- NOTE | 2020-07-15 01:25 | EDM.PDOC ---
ED HPI GENERAL MEDICAL PROBLEM - General Chief Complaint: General Stated Complaint: WEAK/PAIN Time Seen by Provider: 07/15/20 00:36 Source of Information: Reports: Patient, Family, Old Records, RN Notes Reviewed History Limitations: Reports: No Limitations - History of Present Illness INITIAL COMMENTS - FREE TEXT/NARRATIVE: 85-year-old female presents emergency department with a complaint of pain, she has a known history of seropositive rheumatoid factor has been working with rheumatology in [place] for diagnosis of probable rheumatoid arthritis was recently admitted the hospital last week history of SVT as well as significant anemia did receive transfusion 2 units of blood had follow-up with her primary care yesterday blood work at that time showed continued improvement of the hemoglobin slight elevation of WBC at around 12 remainder blood work is other than continued low iron stores. She has been somewhat difficult in her care has refused EGD and colonoscopy for further evaluation of the anemia has refused several medications including the initiation of methotrexate as well as prednisone by rheumatology believes that the purchasing buyer caused her disease. Was using tramadol for pain control but states it does not help is also use hydrocodone in the past without any relief. Was offered palliative and hospice care by primary care which he refused knee and knuckles Pain Score (Numeric/FACES): 1 - Related Data Allergies Allergy/AdvReac Type Severity Reaction Status Date / Time codeine AdvReac Nausea Verified 07/15/20 00:06 Home Meds: Home Meds Telmisartan 40 mg PO DAILY 02/15/20 [History] Tiotropium [Spiriva Handihaler] 18 mcg IH DAILY 02/15/20 [History] Albuterol Sulfate 1 dose INH ASDIRECTED 07/04/20 [History] Albuterol [Proventil Neb Soln] 2.5 mg NEB QID 07/04/20 [History] Amoxicillin/Potassium Clav [Amox-Clav 875-125 mg Tablet] 1 tab PO BID 07/15/20 [History] Iron Polysaccharide Complex [Iferex 150] 150 mg PO BID 07/15/20 [History] Torsemide [Demadex] 10 mg PO DAILY 07/15/20 [History] traMADol [Ultram] 50 mg PO BID 07/15/20 [History] Past Medical History HEENT History: Reports: Cataract Cardiovascular History: Reports: Arrhythmia, High Cholesterol, Hypertension Respiratory History: Reports: COPD, Pneumonia, Recurrent Gastrointestinal History: Reports: GERD Genitourinary History: Reports: Renal Disease Other Genitourinary History: 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: Musculoskeletal History: Reports: Arthritis, Back Pain, Chronic, Gout, RA Hematologic History: Reports: Anemia - Infectious Disease History Infectious Disease History: Reports: Mumps - Past Surgical History HEENT Surgical History: Reports: Cataract Surgery, Tonsillectomy Social & Family History - Family History Family Medical History: No Pertinent Family History Cardiac: Reports: CAD - Tobacco Use Tobacco Use Status *Q: Never Tobacco User - Caffeine Use Caffeine Use: Reports: Coffee, Soda - Recreational Drug Use Recreational Drug Use: No ED ROS GENERAL - Review of Systems Review Of Systems: See Below Constitutional: Reports: No Symptoms Respiratory: Reports: No Symptoms Cardiovascular: Reports: No Symptoms Musculoskeletal: Reports: Neck Pain, Shoulder Pain, Arm Pain, Back Pain, Hand Pain, Leg Pain, Foot Pain, Joint Pain. Denies: Muscle Pain, Muscle Stiffness ED EXAM, GENERAL - Physical Exam Exam: See Below Free Text/Narrative:: Examination of the joint she does have some erythema and edematous around the majority of the joints of both hands difficult for her to move secondary to pain Exam Limited By: No Limitations General Appearance: Alert, WD/WN, No Apparent Distress Respiratory/Chest: No Respiratory Distress Course - Vital Signs Last Recorded V/S: Last Vital Signs Temp 98.8 F 07/15/20 00:12 Pulse 107 H 07/15/20 00:12 Resp 21 H 07/15/20 00:12 BP 137/74 07/15/20 00:12 Pulse Ox 95 07/15/20 00:12 - Orders/Labs/Meds Meds: Medications Discontinued Medications Generic Name Dose Route Start Last Admin Trade Name Freq PRN Reason Stop Dose Admin Fentanyl 50 mcg 07/15/20 00:46 Sublimaze IM 07/15/20 00:47 ONETIME ONE Departure - Departure Time of Disposition: 01:23 Disposition: Home, Self-Care 01 Condition: Poor Clinical Impression: Rheumatoid arthritis Qualifiers: Rheumatoid arthritis location: multiple sites Rheumatoid factor presence: with rheumatoid factor Qualified Code(s): M05.79 - Rheumatoid arthritis with rheumatoid factor of multiple sites without organ or systems involvement - Discharge Information Instructions: Arthritis, [id number] Referrals: Carmelina Martinez NP [Primary Care Provider] - Additional Instructions: Try the Percocet as needed for pain control please contact your primary care in the morning for referral to different purchasing buyer call return to the emergency department worsening of symptoms Sepsis Event Note (ED) - Evaluation Sepsis Screening Result: No Definite Risk - Focused Exam Vital Signs: Vital Signs Temp Pulse Resp BP Pulse Ox 07/15/20 00:12 98.8 F 107 H 21 H 137/74 95 07/15/20 00:03 98.8 F 107 H 21 H 137/74 95 - Assessment/Plan Plan: Assessment Acuity = acute Site and laterality = seropositive rheumatoid factor probable rheumatoid arthritis official diagnosis pending Etiology = unknown does have difficulty with medical compliance Manifestations = none Location of injury = Home Lab values = none Plan Was given 50 mcg fentanyl while in the emergency department which did provide some relief, prescription written for oxycodone 5/325 1 tab p.o. 3 times daily as needed total #6 she is going to contact her primary care in the morning for referral to a different purchasing buyer as she tells me she does not care for the purchasing buyer that she was working with in [place]. Review of [facility] records show that she had a follow-up appointment with rheumatology yesterday however she was a no-show. This note was dictated using [employer] voice recognition software please call with any questions on syntax or grammar.
== END 2020-07-15 02:27 | disposition home or self-care (01) ==
LOC: JP.ED 23:40
DX: M05.79 Rheumatoid arthritis with rheumatoid factor of multiple sites without organ or systems involvement (principal); I10 Essential (primary) hypertension; J44.9 Chronic obstructive pulmonary disease, unspecified; Z88.5 Allergy status to narcotic agent; Z79.899 Other long term (current) drug therapy
CPT/HCPCS: 96372; 99283; J3010

== ENCOUNTER 2020-08-05 13:30 | Emergency (ER) | payer MEDICARE ==
[2020-08-05 13:43] VITALS: BP 141/75; PULSE 94
--- NOTE | 2020-08-05 13:57 | EDM.PDOC ---
ED HPI GENERAL MEDICAL PROBLEM - General Chief Complaint: Cardiovascular Problem Stated Complaint: CARDI WORK UP PER Time Seen by Provider: 08/05/20 13:50 Source of Information: Reports: Patient, Old Records, RN Notes Reviewed History Limitations: Reports: No Limitations - History of Present Illness INITIAL COMMENTS - FREE TEXT/NARRATIVE: 85-year-old female presents the emergency department with a complaint of palpitations, this happened when she was at home care exercising heart rate was measured to be well over 200 by the time she arrives in the emergency department all symptoms have resolved. She does have a known history of SVT is well as severe anemia requiring transfusion - Related Data Allergies Allergy/AdvReac Type Severity Reaction Status Date / Time codeine AdvReac Nausea Verified 07/15/20 00:06 Home Meds: Home Meds Telmisartan 40 mg PO DAILY 02/15/20 [History] Tiotropium [Spiriva Handihaler] 18 mcg IH DAILY 02/15/20 [History] Albuterol Sulfate 1 dose INH ASDIRECTED 07/04/20 [History] Albuterol [Proventil Neb Soln] 2.5 mg NEB QID 07/04/20 [History] Iron Polysaccharide Complex [Iferex 150] 150 mg PO BID 07/15/20 [History] Torsemide [Demadex] 10 mg PO DAILY 07/15/20 [History] traMADol [Ultram] 50 mg PO BID 07/15/20 [History] Iron Polysaccharide Complex [Iferex 150] 150 mg PO BID 08/05/20 [History] Past Medical History HEENT History: Reports: Cataract Cardiovascular History: Reports: Arrhythmia (SVT), High Cholesterol, Hypertension Respiratory History: Reports: COPD, Pneumonia, Recurrent Gastrointestinal History: Reports: GERD Genitourinary History: Reports: Renal Disease Other Genitourinary History: stage 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: Musculoskeletal History: Reports: Arthritis, Back Pain, Chronic, Gout, RA Hematologic History: Reports: Anemia - Infectious Disease History Infectious Disease History: Reports: Mumps - Past Surgical History HEENT Surgical History: Reports: Cataract Surgery, Tonsillectomy Social & Family History - Family History Family Medical History: No Pertinent Family History Cardiac: Reports: CAD - Tobacco Use Tobacco Use Status *Q: Never Tobacco User - Caffeine Use Caffeine Use: Reports: Coffee, Soda ED ROS GENERAL - Review of Systems Review Of Systems: See Below Constitutional: Reports: No Symptoms HEENT: Reports: No Symptoms Respiratory: Reports: No Symptoms Cardiovascular: Reports: Palpitations GI/Abdominal: Reports: No Symptoms ED EXAM, GENERAL - Physical Exam Exam: See Below Exam Limited By: No Limitations General Appearance: Alert, WD/WN, No Apparent Distress Respiratory/Chest: No Respiratory Distress, Lungs Clear, Normal Breath Sounds, No Accessory Muscle Use, Chest Non-Tender Cardiovascular: Regular Rate, Rhythm, No Murmur GI/Abdominal: Soft, Non-Tender Course - Vital Signs Last Recorded V/S: Last Vital Signs Temp 96.7 F L 08/05/20 13:43 Pulse 94 08/05/20 13:43 Resp 16 08/05/20 13:43 BP 141/75 H 08/05/20 13:43 Pulse Ox 99 08/05/20 13:43 - Orders/Labs/Meds Orders: Active Orders 24 hr Category Date Time Status Cardiac Monitoring [RC] .As Directed Care 08/05/20 13:55 Active EKG Documentation Completion [RC] ASDIRECTED Care 08/05/20 13:55 Active EKG 12 Lead [EK] Stat Ther 08/05/20 13:55 Ordered Labs: Laboratory Tests 08/05/20 08/05/20 Range/Units 14:00 14:00 WBC 13.6 H (4.5-11.0) K/uL RBC 3.13 L (3.30-5.50) M/uL Hgb 9.0 L (12.0-15.0) g/dL Hct 30.1 L (36.0-48.0) % MCV 96 (80-98) fL MCH 29 (27-31) pg MCHC 30 L (32-36) % Plt Count 470 H (150-400) K/uL Neut % (Auto) 79 H (36-66) % Lymph % (Auto) 11 L (24-44) % [place] % (Auto) 8 H (2-6) % Eos % (Auto) 1 L (2-4) % Baso % (Auto) 1 (0-1) % Sodium 136 L (140-148) mmol/L Potassium 4.3 (3.6-5.2) mmol/L Chloride 99 L (100-108) mmol/L Carbon Dioxide 31 (21-32) mmol/L Anion Gap 10.3 (5.0-14.0) mmol/L BUN 64 H D (7-18) mg/dL Creatinine 1.7 H (0.6-1.0) mg/dL Est Cr Clr Drug Dosing 17.60 mL/min Estimated GFR (MDRD) 29 L (>60) Glucose 96 (74-106) mg/dL Calcium 10.7 H (8.5-10.1) mg/dL Magnesium 2.4 (1.8-2.4) mg/dL Troponin I < 0.017 (0.000-0.056) ng/mL Departure - Departure Time of Disposition: 14:51 Disposition: Home, Self-Care 01 Condition: Fair Clinical Impression: Palpitations Instructions: Palpitations, [id number] Referrals: Carmelina Hutchins NP [Primary Care Provider] - Forms: ED Department Discharge Additional Instructions: Continue with your regular medications, please keep your follow-up appointment with your primary care tomorrow, please consider a Holter monitor in the future Sepsis Event Note (ED) - Evaluation Sepsis Screening Result: No Definite Risk - Focused Exam Vital Signs: Vital Signs Temp Pulse Resp BP Pulse Ox 08/05/20 13:43 96.7 F L 94 16 141/75 H 99 08/05/20 13:42 96.7 F L 94 16 141/75 H 99 - My Orders Last 24 Hours: My Active Orders 08/05/20 13:55 Cardiac Monitoring [RC] .As Directed EKG Documentation Completion [RC] ASDIRECTED EKG 12 Lead [EK] Stat - Assessment/Plan Last 24 Hours: My Active Orders 08/05/20 13:55 Cardiac Monitoring [RC] .As Directed EKG Documentation Completion [RC] ASDIRECTED EKG 12 Lead [EK] Stat Plan: Assessment Acuity = acute Site and laterality = palpitations Etiology = unknown Manifestations = none Location of injury = Home Lab values = hemoglobin 9.0 consistent normochromic anemia creatinine elevated 1.7 consistent chronic renal failure stage G4 troponin is negative EKG demonstrates sinus rhythm no ST elevations or depressions Plan She has a follow-up appointment with her primary care tomorrow vascular discussed the possibility of a Holter monitor or event monitor which she could wear for period of time, she is asymptomatic at this time This note was dictated using [employer] voice recognition software please call with any questions on syntax or grammar.
== END 2020-08-05 15:00 | disposition home or self-care (01) ==
LOC: JP.ED 13:30
DX: R00.2 Palpitations (principal); I10 Essential (primary) hypertension; J44.9 Chronic obstructive pulmonary disease, unspecified; D64.9 Anemia, unspecified; Z88.5 Allergy status to narcotic agent; Z79.899 Other long term (current) drug therapy
CPT/HCPCS: 36415; 80048; 83735; 84484; 85025; 93005; 93010; 99285-25